=== PATIENT | female | born 1975 | race Caucasian/White ===

== ENCOUNTER 2020-10-22 13:53 | Outpatient (CLI) | payer OTHER, SELFPAY ==
--- NOTE | ~2020-10-22 | XR_ITS ---
XR hip RT min 2V, XR hip LT min 2V 10/22/2020 14:45 (accession [id number]), 10/22/2020 14:46 (accession [id number]) Indication: General hip pain. Procedure: 2 views of each hip Comparison: 07/26/2014 Findings: There has been progression of severe osteoarthritis of the hips bilaterally with complete l oss of joint space superiorly as well as remodeling of the acetabulum and subchondral sclerosis of th e femoral heads. No acute fracture is identified. No significant soft tissue abnormality. No Impression: 1: Interval progression of severe osteoarthritis of the hips. Reviewed, dictated and finalized at location A. TECHNICIAN Impression: 1: Interval progression of severe osteoarthritis of the hips. Impression: 1: Interval progression of severe osteoarthritis of the hips.
[2020-10-22 14:19] LABS: Basophils Absolute Auto 0.06 K/mm3 (0.00-0.10); Basophils Percent Auto 0.6 % (0.0-1.0); Eosinophils Percent Auto 2.9 % (1.0-6.0); Hematocrit 40.4 % (35.0-49.0); Hemoglobin 13.3 g/dL (12.0-15.0); Immature Granulocyte Absolute 0.06 K/mm3 (0.00-0.00); Immature Granulocyte Percent A 0.6 % (0.0-0.0); Lymphocytes Absolute Auto 3.48 K/mm3 (1.10-4.50); Lymphocytes Percent Auto 33.6 % (18.0-42.0); Mean Corpuscular HGB Conc 32.9 g/dL (32.0-36.0); Mean Corpuscular Hemoglobin 28.6 pg (27.0-31.0); Mean Corpuscular Volume 86.9 fL (78.0-102.0); Mean Platelet Volume 8.5 fl (9.2-11.8); Monocytes Absolute Auto 0.93 K/mm3 (0.10-0.90); Neutrophils Absolute Auto 5.5 K/mm3 (1.7-7.2); Neutrophils Percent Auto 53.3 % (50.0-70.0); Platelet Count Result 429 K/mm3 (150-420); Red Blood Count 4.65 M/mm3 (4.20-5.40); Red Cell Distribution Width 13.2 % (11.6-14.4); White Blood Count 10.4 K/mm3 (4.8-10.8)
[2020-10-22 15:33] LABS: Alanine Aminotransferase 20 U/L (14-59); Alkaline Phosphatase 69 U/L (46-116); Anion Gap 8 mmol/L (8-16); Aspartate Amino Transferase 13 U/L (15-37); Bilirubin,Total 0.3 mg/dL (0.00-1.00); Blood Urea Nitrogen 26 mg/dL (7-18); Calcium 9.5 mg/dL (8.5-10.1); Carbon Dioxide 32 mmol/L (21-32); Chloride 100 mmol/L (98-108); Cholesterol 208 mg/dL (0-200); Estimated Glomerular Filt Rate 47; Free T4 Free Thyroxine 0.95 ng/dL (0.76-1.46); Glucose 81 mg/dL (70-99); HDL Direct 42 mg/dL (40-60); LDL Cholesterol Calculated 124 mg/dL (<130); Osmolality Calculated 293 mOsm/kg (285-295); Potassium 3.6 mmol/L (3.5-5.1); Sodium 140 mmol/L (136-145); Thyroid Stimulating Hormone 3.25 uIU/mL (0.36-3.74); Total Protein 8.3 g/dL (6.4-8.2); Triglycerides 212 mg/dL (0-150)
== END 2020-10-22 13:54 | disposition home or self-care (01) ==
LOC: CHSLAB 13:56
PROVIDERS: PCP Nurse Practitioner Family; Visit Provider Nurse Practitioner Family
DX: M25.552 Pain in left hip (principal); M25.551 Pain in right hip; I10 Essential (primary) hypertension; M79.606 Pain in leg, unspecified
CPT/HCPCS: 36415; 73502; 80053; 80061; 84439; 84443; 85025

== ENCOUNTER 2022-09-10 07:59 | Outpatient (CLI) | payer OTHER, SELFPAY ==
--- NOTE | ~2022-09-10 | MM_ITS ---
EXAMINATION: MM screening miryam BI w sabiha HISTORY: Screening TECHNIQUE: Craniocaudal and mediolateral oblique 3-D tomosynthesis images were obtained and synthetic 2-D images were generated. CAD analysis was submitted and interpreted. COMPARISON: Comparison to multiple prior studies sequentially, with oldest reviewed study dated 02/15. BREAST PARENCHYMAL COMPOSITION: There are scattered areas of fibroglandular density. FINDINGS: There is no evidence of suspicious mass, calcification, or architectural distortion to sugg est malignancy in either breast. There has been no suspicious interval change. IMPRESSION: 1. No mammographic evidence of malignancy. 2. Recommend routine screening mammography in one year. BI-RADS Category 1: Negative Reviewed, dictated and finalized at location A.
[2022-09-10 08:09] LABS: Basophils Absolute Auto 0.07 K/mm3 (0.00-0.10); Basophils Percent Auto 0.7 % (0.0-1.0); Eosinophils Absolute Auto 0.32 K/mm3 (0.02-0.50); Eosinophils Percent Auto 3.2 % (1.0-6.0); Hemoglobin 12.7 g/dL (12.0-15.0); Immature Granulocyte Absolute 0.07 K/mm3 (0.00-0.00); Immature Granulocyte Percent A 0.7 % (0.0-0.0); Lymphocytes Absolute Auto 2.91 K/mm3 (1.10-4.50); Lymphocytes Percent Auto 29.4 % (18.0-42.0); Mean Corpuscular HGB Conc 34.3 g/dL (32.0-36.0); Mean Corpuscular Hemoglobin 29.3 pg (27.0-31.0); Mean Corpuscular Volume 85.3 fL (78.0-102.0); Mean Platelet Volume 8.5 fl (9.2-11.8); Monocytes Absolute Auto 0.85 K/mm3 (0.10-0.90); Monocytes Percent Auto 8.6 % (2.0-11.0); Neutrophils Absolute Auto 5.7 K/mm3 (1.7-7.2); Neutrophils Percent Auto 57.4 % (50.0-70.0); Platelet Count Result 409 K/mm3 (150-420); Red Blood Count 4.34 M/mm3 (4.20-5.40); Red Cell Distribution Width 12.9 % (11.6-14.4); White Blood Count 9.9 K/mm3 (4.8-10.8)
[2022-09-10 08:35] LABS: Alanine Aminotransferase 24 U/L (14-59); Albumin Level 3.9 g/dL (3.4-5.0); Alkaline Phosphatase 72 U/L (46-116); Anion Gap 9 mmol/L (8-16); Aspartate Amino Transferase 19 U/L (15-37); Bilirubin,Total 0.4 mg/dL (0.00-1.00); Blood Urea Nitrogen 24 mg/dL (7-18); Calcium 8.9 mg/dL (8.5-10.1); Carbon Dioxide 30 mmol/L (21-32); Chloride 100 mmol/L (98-108); Cholesterol 188 mg/dL (0-200); Estimated Glomerular Filt Rate 58; Glucose 113 mg/dL (70-99); HDL Direct 41 mg/dL (40-60); LDL Cholesterol Calculated 92 mg/dL (<130); Osmolality Calculated 293 mOsm/kg (285-295); Potassium 2.9 mmol/L (3.5-5.1); Sodium 139 mmol/L (136-145); Total Protein 8.5 g/dL (6.4-8.2); Triglycerides 273 mg/dL (0-150)
== END 2022-09-10 08:00 | disposition home or self-care (01) ==
LOC: CHSIMG 07:59
PROVIDERS: PCP Nurse Practitioner Family; Visit Provider Nurse Practitioner Family
DX: Z12.31 Encounter for screening mammogram for malignant neoplasm of breast (principal); I10 Essential (primary) hypertension; Z13.6 Encounter for screening for cardiovascular disorders; R73.09 Other abnormal glucose
CPT/HCPCS: 36415; 77063; 77067; 80053; 80061; 83036; 85025

== ENCOUNTER 2023-08-26 09:54 | Outpatient (CLI) | payer OTHER, SELFPAY ==
--- NOTE | ~2023-08-26 | XR_ITS ---
Thoracic spine: Clinical Indication: Deforming dorsopathy AP and lateral views were performed. No fracture is seen. There is normal alignment of the vertebrae. The intervertebral disc spaces appe ar normal. Paravertebral soft tissues appear normal. Impression: No significant abnormalities noted. Reviewed, dictated and finalized at [facility]. Impression: No significant abnormalities noted.
--- NOTE | ~2023-08-26 | XR_ITS ---
Lumbosacral Spine: AP and lateral views Clinical History: Pain Findings: The normal lordotic curve is maintained no fracture or subluxation. There is mild degenerat rosibel disc change at L4-L5. There is advanced facet arthropathy from L4 through S1. The sacroiliac join ts are normally outlined. Impression: Mild to moderate degenerative spondylosis at the lower lumbar spine, as detailed above. Reviewed, dictated and finalized at location M. Impression: Mild to moderate degenerative spondylosis at the lower lumbar spine, as detaile d above.
--- NOTE | ~2023-08-26 | XR_ITS ---
XR knee LT 3V DATE: 08/26/2023 11:04 INDICATION: Right knee pain TECHNIQUE: [place], AP and lateral views COMPARISON: None FINDINGS: No fracture or dislocation or joint effusion. Joint spaces are well preserved. No radiopaqu e intra-articular loose body or chondral calcinosis. IMPRESSION: Negative Reviewed, dictated and finalized at location L. IMPRESSION: Negative
--- NOTE | ~2023-08-26 | XR_ITS ---
AP and lateral views of the bilateral hips Clinical history: Pain Findings: No acute fracture or dislocation is seen. There is severe osteoporosis arthritis of the nash ateral hip joints, with joint space narrowing, remodeling of the femoral heads, reactive sclerosis, a nd osteophyte formation. There is subchondral cystic change in the left acetabulum. There is probable mild superolateral subluxation of the bilateral femoral heads/remodeling of the hip joints. Soft tis sues are unremarkable. Impression: Severe osteoarthritis of the bilateral hip joints, as detailed above, further progressed since 021. No acute fracture or dislocation. Reviewed, dictated and finalized at location M. Impression: Severe osteoarthritis of the bilateral hip joints, as detailed above, further p rogressed since 11/21/2020. No acute fracture or dislocation.
[2023-08-26 10:24] LABS: Basophils Absolute Auto 0.08 K/mm3 (0.00-0.10); Basophils Percent Auto 0.7 % (0.0-1.0); Eosinophils Absolute Auto 0.39 K/mm3 (0.02-0.50); Eosinophils Percent Auto 3.4 % (1.0-6.0); Hemoglobin 12.5 g/dL (12.0-15.0); Immature Granulocyte Absolute 0.06 K/mm3 (0.00-0.00); Immature Granulocyte Percent A 0.5 % (0.0-0.0); Lymphocytes Absolute Auto 2.86 K/mm3 (1.10-4.50); Mean Corpuscular HGB Conc 33.8 g/dL (32.0-36.0); Mean Corpuscular Hemoglobin 28.9 pg (27.0-31.0); Mean Corpuscular Volume 85.6 fL (78.0-102.0); Mean Platelet Volume 8.6 fl (9.2-11.8); Monocytes Absolute Auto 0.74 K/mm3 (0.10-0.90); Monocytes Percent Auto 6.5 % (2.0-11.0); Neutrophils Absolute Auto 7.3 K/mm3 (1.7-7.2); Neutrophils Percent Auto 63.9 % (50.0-70.0); Platelet Count Result 417 K/mm3 (150-420); Red Blood Count 4.32 M/mm3 (4.20-5.40); Red Cell Distribution Width 13.2 % (11.6-14.4); White Blood Count 11.4 K/mm3 (4.8-10.8)
[2023-08-26 11:23] LABS: Erythrocyte Sedimentation Rate 41 mm/hr (0-15)
[2023-08-26 12:17] LABS: Alanine Aminotransferase 19 U/L (14-59); Albumin Level 3.6 g/dL (3.4-5.0); Alkaline Phosphatase 80 U/L (46-116); Anion Gap 12 mmol/L (8-16); Aspartate Amino Transferase 13 U/L (15-37); Bilirubin,Total 0.4 mg/dL (0.00-1.00); Blood Urea Nitrogen 17 mg/dL (7-18); Calcium 9.4 mg/dL (8.5-10.1); Carbon Dioxide 30 mmol/L (21-32); Chloride 100 mmol/L (98-108); Cholesterol 173 mg/dL (0-200); Estimated Glomerular Filt Rate 57; Free T4 Free Thyroxine 1.08 ng/dL (0.76-1.46); Glucose 114 mg/dL (70-99); HDL Direct 38 mg/dL (40-60); LDL Cholesterol Calculated 87 mg/dL (<130); Magnesium 1.6 mg/dL (1.8-2.4); Osmolality Calculated 296 mOsm/kg (285-295); Potassium 3.1 mmol/L (3.5-5.1); Sodium 142 mmol/L (136-145); Total Protein 7.4 g/dL (6.4-8.2); Triglycerides 242 mg/dL (0-150)
[2023-08-26 13:04] LABS: Rheumatoid Factor Screen Negative (Negative)
[2023-08-26 14:29] LABS: Hemoglobin A1C 5.9 % (<5.7)
[2023-08-29 20:18] LABS: Vitamin D 25 Hydroxy 19 ng/mL (30-100)
[2023-09-01 06:04] LABS: Anti Nuclear Antibody Pattern Nuclear, Speckled
== END 2023-08-26 09:55 | disposition home or self-care (01) ==
LOC: CHSLAB 09:56
PROVIDERS: PCP Nurse Practitioner Family; Visit Provider Nurse Practitioner Family
DX: M43.06 Spondylolysis, lumbar region (principal); M16.0 Bilateral primary osteoarthritis of hip; E11.9 Type 2 diabetes mellitus without complications; R53.83 Other fatigue; I10 Essential (primary) hypertension; M25.50 Pain in unspecified joint; M54.50 Low back pain, unspecified; G89.29 Other chronic pain; M16.6 Other bilateral secondary osteoarthritis of hip; M43.9 Deforming dorsopathy, unspecified
CPT/HCPCS: 36415; 72072; 72100; 73521; 73562; 80053; 80061; 82306; 83036; 83735; 84439; 84443; 85025; 85652; 86038; 86039; 86430

== ENCOUNTER 2023-08-31 16:56 | Outpatient (RCR) | payer OTHER, SELFPAY ==
--- NOTE | 2023-08-31 17:57 | OPREHPOC ---
Outpatient Therapy Plan of Care This is a Multidisciplinary Plan of Care that may contain components documented by all disciplines (PT, OT, and ST.) PT Problem 1 PT Problem #1 Knowledge Deficit PT Goal 1 Goal 1. independent and compliant with HEP Target Visit 2 PT Problem 2 PT Problem #2 Impaired Range of Motion PT Goal 1 Goal 1. improve bilateral hip active flexion to 75 degrees 2. patient to display active hip extension bilaterall to -20 degrees from 0 Target Visit 6 PT Problem 3 PT Problem #3 Impaired Functional Mobil PT Goal 1 Goal 1. patient to ambulate with upright posture with hands on handles of walker. Target Visit 6
--- NOTE | 2023-08-31 17:57 | PTOPEVAL1 ---
Assessment and note entered by JT File, PT Evaluation Information Assessment Status Evaluation Diagnosis bilateral knee pain, hip OA Onset 08/26/23 Subjective Information patient reports she needs hip replacements in both hips. she reports she has been scared to get them done for 3 years. she reports she is a smoker and is struggling to stop smoking. she reports she has been using a walker for about a year and a half. she reports her walking has gotten progressively worse since she has had to go to the cane. she reports she has had xrays of the knees, hips, and back. she reports she has the worst pain in the hips when standing and walking. she reports she would like to walk longer distance and without assistive devices. patient reports she sleeps in a recliner. Reported Pain Level Pain Score 9,6: Self Report Assessment PT Clinical Summary mrs. jauregui is a 47 yo woman who presents to skilled PT for evaluation and treatment of bilateral hip and knee pain. she presents with signs and symptoms of severe OA of the bilateral hips. she would benefit from hip replacement of the bilateral hips, but currently is not a candidate for surgery. since surgery is not an option at this time, she would benefit from trial of PT to improve her hip strength and rom. however , care needs to be used to gently move hips due to the severe level of OA and osteoporosis in the hips. Plan of Care Interventions Gait Training,Hot Pack/Cold Pack,Neuro Re- education,Patient/Caregiver Educati,Therapeutic Activities,Therapeutic Exercise PT Services Indicated Yes Treatment Frequency and 2x weekly for 6 visits Duration These treatments will address the objective and functional deficits as defined above. The patient will be advanced safely and appropriately in order for the patient to progress towards his/her prior level of function. Additional exercises will be introduced and as well as a comprehensive home exercise program upon discharge, if needed, ?to ensure carryover of functional gains achieved in the clinic. This treatment plan has been reviewed and agreement upon by the patient.
--- NOTE | 2023-10-07 16:01 | OPREHPOC ---
Outpatient Therapy Plan of Care This is a Multidisciplinary Plan of Care that may contain components documented by all disciplines (PT, OT, and ST.) PT Problem 1 PT Problem #1 Knowledge Deficit PT Goal 1 Goal 1. independent and compliant with HEP Target Visit 2 Progress Met PT Problem 2 PT Problem #2 Impaired Range of Motion PT Goal 1 Goal 1. improve bilateral hip active flexion to 75 degrees 2. patient to display active hip extension bilaterall to -20 degrees from 0 Target Visit 6 Progress Not Met PT Problem 3 PT Problem #3 Impaired Functional Mobil PT Goal 1 Goal 1. patient to ambulate with upright posture with hands on handles of walker. Target Visit 6 Progress Not Met
--- NOTE | 2023-10-07 16:01 | PTOPDC ---
Assessment and note entered by JT File, PT Evaluation Information Assessment Status Discharge Diagnosis bilateral knee pain, hip OA Onset 08/26/23 Subjective Information patient reports she continues to have pain in the bilateral hips. she reports she is still not currently a candidate for surgery. she reports she returns to the MD in 1 month. she reports the pain is still severe at times, but she does work on her exercises when she can. Assessment PT Clinical Summary mrs. jauregui presents to skilled PT for her 6th skilled therapy visit. she continues to have high pain in the bilateral hips and knees, and is limited in active and passive hip and knee mobility. she is essentially locked in hip flexion and knee flexion. she is unable to stand upright even with UE support. she has met goal for HEP performance, but no other goals. due to lack of significant progress, and obvious needs for surgical intervention to improve her hip and knee mobility, she will DC skilled PT today and continue with HEP independent at home until follow up with MD. Plan of Care PT Services Indicated Yes
== END 2023-09-16 16:30 | disposition home or self-care (01) ==
LOC: CHSPT 16:56
PROVIDERS: PCP Nurse Practitioner Family; Visit Provider Nurse Practitioner Family
DX: M16.9 Osteoarthritis of hip, unspecified (principal); M25.561 Pain in right knee; M25.562 Pain in left knee
CPT/HCPCS: 97110; 97163

== ENCOUNTER 2024-10-22 04:33 | Emergency (ER) | payer MEDICARE, MEDICAID, SELFPAY ==
[2024-10-22 04:33] VITALS: BP 135/101; PULSE 108; RESP 18; TEMP 37; O2SAT 100
--- NOTE | 2024-10-22 04:43 | ED_ITS ---
HPI - Skin/Abscess/Foreign Bdy General Chief complaint: Extremity Problem,Nontraumatic Stated complaint: Swollen left elbow Time Seen by Provider: 10/22/24 04:43 Source: patient Mode of arrival: ambulatory Limitations: no limitations History of Present Illness HPI narrative: 48-year-old female with a history of smoking, hypertension, hyperhidrosis, GERD, chronic low back pain presents to the ED with a 1 week history of -- left elbow cellulitis. Started as a small pimple which she pinched which led to worsening left elbow cellulitis. The patient is noted to have swelling of left forearm. No fever or chills. MD complaint: other ( Left elbow erythema with swelling /tenderness) Onset (ago): week(s) ( 1 week) Tetanus up to date: no Location: L hand ( left elbow) Quality: aching Pain Consistency: constant Relieving factors: none Exacerbating factors: none Associated symptoms: denies other symptoms Treatments prior to arrival: none Related Data Home Medications ?Medication ?Instructions ?Recorded ?Confirmed ?Last Taken ?Type famotidine 20 mg tablet 20 mg PO DAILY 11/13/20 10/22/24 10/21/24 History omeprazole 20 mg capsule,delayed 20 mg PO DAILY 11/13/20 10/22/24 10/21/24 History release Allergies Allergy/AdvReac Type Severity Reaction Status Date / Time No Known Allergies Allergy Verified 10/22/24 04:51 Review of Systems 2 Review of Systems: All systems reviewed & are unremarkable except as noted in HPI and below Constitutional: Constitutional: Reports as per HPI and Reports no additional constitutional complaints Eyes: Eyes: Reports as per HPI and Reports no additional eye complaints ENT: Reports system reviewed and no additional complaints, except as documented and Reports as per HPI Cardiovascular: Cardiovascular: Reports as per HPI and Reports no additional cardiovascular complaints Respiratory: Respiratory: Reports as per HPI and Reports no additional respiratory complaints Gastrointestinal: Gastrointestinal: Reports as per HPI and Reports no additional gastrointestinal complaints Genitourinary: Genitourinary: Reports no additional female genitourinary complaints and Reports as per HPI Musculoskeletal: Musculoskeletal: Reports no additional musculoskeletal complaints and Reports as per HPI Integumentary/Breasts: Comments: left elbow swelling /redness /pain Neurologic: Reports system reviewed and no additional complaints, except as documented and Reports as per HPI Psychiatric: Psychiatric: Reports no additional psychiatric complaints and Reports as per HPI Endocrine: Endocrine: Reports no additional endocrine complaints and Reports as per HPI Hematologic/Lymphatic: Hematologic/Lymphatic: Reports no additional hematologic/lymphatic complaints and Reports as per HPI Allergic/Immunologic: Allergic/Immunologic: Reports no additional allergic/immunologic complaints and Reports as per HPI [facility] Past Medical History Medical History UTI (urinary tract infection) GERD (gastroesophageal reflux disease) Wears glasses Nicotine dependence Generalized hyperhidrosis Lower back pain Benign hypertension Surgical History Surgical History History of carpal tunnel surgery of right wrist History of hysterectomy -2014 Family History Family History Mother Hypertension Other Arthritis Social History Social History Smoking packs per day: 1 Smoking cigarettes per day: 20.0 Years smoked: 28 Smoking pack-years: 28.00 Smoking status: Current every day smoker Tobacco type: cigarettes Alcohol intake: never Substance use: never Substance use type: does not use Lack of Transportation: No Lack of Food: Never True Current Housing: I Have Housing Concerned About Future Housing: No Difficulty Paying Gas/Electric Bills: No Difficulty Paying for Meds: No Currently Unemployed: No Education: High School Diploma/GED Difficulty w/ Childcare or Family Care: No Living arrangements: alone Gender identity (if verbalized by the patient): Female Spiritual care concerns: No Exam 2 Const: General: no acute distress Nutritional Appearance: well nourished Orientation/consciousness: patient oriented x3 Limitations: no limitations HENMT: Head: normal to inspection Ears: external ears normal F luc/Nose/Sinus: Normal external nose present Face and sinus: normal facial exam Mouth: Yes Normal oral and palatal mucosa present Throat: posterior oropharynx normal Eyes: Conjunctivae: conjunctivae normal Pupils: Equal, round and reactive pupils present EOM: EOMs intact bilaterally Direct Ophthalmoscopy: no photophobia Neck: Neck: normal visual inspection, no lymphadenopathy and no meningeal signs Chest: Chest palpation & inspection: normal inspection of the chest Resp: Effort & Inspection: normal respiratory effort Auscultation: clear to auscultation bilaterally Cardio: Rate: regular rate Rhythm: regular rhythm GI: GI Palp: Yes Soft to palpation Auscultation: normal bowel sounds : General: Yes no CVA tenderness Back/Spine/Pelvis: Back: no CVA tenderness Skin: Other: left elbow swelling with erythema and tenderness which extends into left forearm. No regional lymphadenopathy. Neuro: General: patient oriented x3 Cranial nerves: Yes Nystagmus not present Speech: normal speech Gait exam (Neuro): Normal gait present Extrem: General: normal to inspection and no clubbing, cyanosis or edema Psych: Mental Status: mental status grossly normal Affect: normal affect Attitude: cooperative Course Course Emergency Course: Left elbow cellulitis- patient received a dose of Zosyn electrolyte imbalance 4.-5 g. Low magnesium and low potassium which was supplemented Vital Signs Vital signs: Vital Signs Temperature 37.0 C 10/22/24 04:33 Pulse Rate 108 H 10/22/24 04:33 Respiratory Rate 18 10/22/24 04:33 Blood Pressure 135/101 H 10/22/24 04:33 Pulse Oximetry 100 10/22/24 04:33 Oxygen Delivery Room Air 10/22/24 04:33 Temperature 37.0 C 10/22/24 04:33 Pulse Rate 108 H 10/22/24 04:33 Respiratory Rate 18 10/22/24 04:33 Blood Pressure 135/101 H 10/22/24 04:33 Pulse Oximetry 100 10/22/24 04:33 Oxygen Delivery Room Air 10/22/24 04:33 MDM - Skin/Abscess/Foreign Bdy MDM Narrative Medical decision making narrative: left elbow cellulitis electrolyte imbalance Differential Diagnosis Differential diagnosis: Likely abscess of skin or subcutaneous tissue Medical Records Attestation: I reviewed the patient's medical records. Lab Data Attestation: I reviewed the patient's lab results. 10/22/24 04:58 10/22/24 04:58 Labs: Lab Results 10/22/24 Range/Units 04:58 WBC 12.0 H (4.8-10.8) K/mm3 RBC 4.12 L (4.20-5.40) M/mm3 Hgb 11.6 L (12.0-15.0) g/dL Hct 34.7 L (35.0-49.0) % MCV 84.2 (78.0-102.0) fL MCH 28.2 (27.0-31.0) pg MCHC 33.4 (32-36) g/dL RDW 13.7 (11.6-14.4) % Plt Count 541 H (150-420) K/mm3 MPV 8.8 L (9.2-11.8) fl Immature Gran % (Auto) 0.6 H (0.0-0.0) % Neut % (Auto) 68.7 (50.0-70.0) % Lymph % (Auto) 20.6 (18.0-42.0) % Andrews % (Auto) 7.1 (2.0-11.0) % Eos % (Auto) 2.6 (1.0-6.0) % Baso % (Auto) 0.4 (0.0-1.0) % Lymph # (Auto) 2.47 (1.10-4.50) K/mm3 Andrews # (Auto) 0.85 (0.10-0.90) K/mm3 Eos # (Auto) 0.31 (0.02-0.50) K/mm3 Baso # (Auto) 0.05 (0.00-0.10) K/mm3 Abs Immat Gran (auto) 0.07 H (0.00-0.00) K/mm3 Absolute Neuts (auto) 8.22 H (1.70-7.20) K/mm3 Absolute Nucleated RBC 0.00 (0.00-0.00) K/mm3 Nucleated RBC % 0.0 (0-0.0) % % Immature Plt Fraction 1.3 (1.0-7.0) % Sodium 137 (136-145) mmol/L Potassium 2.9 L (3.5-5.1) mmol/L Chloride 98 (98-108) mmol/L Carbon Dioxide 30 (21-32) mmol/L Anion Gap 9 (4-12) mmol/L BUN 20 H (7-18) mg/dL Creatinine 0.99 (0.55-1.02) mg/dL Estim Creat Clear Calc 70 ml/min Estimated GFR 60 (59 - ) Glucose 105 H (70-99) mg/dL Calculated Osmolality 286 (285-295) mOsm/kg Lactic Acid 1.4 (0.4-2.0) mmol/L Calcium 9.2 (8.5-10.1) mg/dL Magnesium 1.4 L (1.8-2.4) mg/dL Total Bilirubin 0.4 (0.00-1.00) mg/dL AST 14 L (15-37) U/L ALT 12 L (14-59) U/L Alkaline Phosphatase 74 (46-116) U/L Total Protein 8.1 (6.4-8.2) g/dL Albumin 3.2 L (3.4-5.0) g/dL Discharge Plan Discharge Clinical Impression: Cellulitis of left elbow, Electrolyte imbalance Patient Disposition: Home, Self-Care Condition: Stable Instructions: Antibiotic Form, Cellulitis (ED), Hypokalemia (ED) Patient Language: Maori Prescriptions: New amoxicillin-pot clavulanate 875-125 mg tablet 1 tablet PO Q12H Qty: 14 0RF No Action omeprazole 20 mg capsule,delayed release(DR/EC) 20 mg PO DAILY famotidine 20 mg tablet 20 mg PO DAILY Patient Comments: per patient home medication list provided 11/12/20 metoprolol succinate 100 mg tablet extended release 24 hr See Rx Instructions .ROUTE .COMPLEX Qty: 90 0RF Dose Instruction: Take 1 tablet by mouth once daily Rx Instructions: Take 1 tablet by mouth once daily amlodipine 5 mg tablet See Rx Instructions .ROUTE .COMPLEX Qty: 90 0RF Dose Instruction: Take 1 tablet by mouth once daily Rx Instructions: Take 1 tablet by mouth once daily chlorthalidone 50 mg tablet See Rx Instructions .ROUTE .COMPLEX Qty: 90 0RF Dose Instruction: Take 1 tablet by mouth once daily Rx Instructions: Take 1 tablet by mouth once daily losartan 100 mg tablet See Rx Instructions .ROUTE .COMPLEX Qty: 90 0RF Dose Instruction: Take 1 tablet by mouth once daily Rx Instructions: Take 1 tablet by mouth once daily Follow-up/Referrals: Padmini Irene APRN [Primary Care Provider] - Time of Disposition: 06:56
--- NOTE | 2024-10-22 05:13 | PC.NURSE ---
NOTIFIED LENNY WITH LAB THAT BLOOD CULTURES NEED TO BE DRAWN
--- NOTE | 2024-10-22 05:18 | PC.NURSE ---
WAITING ON LAB TO DRAW BLOOD CULTURES BEFORE STARTING IV ANTIBIOTICS
[2024-10-22 05:29] LABS: Basophils Absolute Auto 0.05 K/mm3 (0.00-0.10); Basophils Percent Auto 0.4 % (0.0-1.0); Eosinophils Absolute Auto 0.31 K/mm3 (0.02-0.50); Eosinophils Percent Auto 2.6 % (1.0-6.0); Hematocrit 34.7 % (35.0-49.0); Hemoglobin 11.6 g/dL (12.0-15.0); Immature Granulocyte Absolute 0.07 K/mm3 (0.00-0.00); Immature Granulocyte Percent A 0.6 % (0.0-0.0); Immature Platelet Fraction Pct 1.3 % (1.0-7.0); Lymphocytes Absolute Auto 2.47 K/mm3 (1.10-4.50); Lymphocytes Percent Auto 20.6 % (18.0-42.0); Mean Corpuscular HGB Conc 33.4 g/dL (32-36); Mean Corpuscular Hemoglobin 28.2 pg (27.0-31.0); Mean Corpuscular Volume 84.2 fL (78.0-102.0); Mean Platelet Volume 8.8 fl (9.2-11.8); Monocytes Absolute Auto 0.85 K/mm3 (0.10-0.90); Monocytes Percent Auto 7.1 % (2.0-11.0); Neutrophils Absolute Auto 8.22 K/mm3 (1.70-7.20); Neutrophils Percent Auto 68.7 % (50.0-70.0); Platelet Count Result 541 K/mm3 (150-420); Red Blood Count 4.12 M/mm3 (4.20-5.40); Red Cell Distribution Width 13.7 % (11.6-14.4)
--- NOTE | 2024-10-22 05:33 | PC.NURSE ---
ASKED LENNY FROM LAB TO COME DRAW BLOOD CULTURES SO ANTIBIOTICS COULD BE STARTED
[2024-10-22 05:36] LABS: Alanine Aminotransferase 12 U/L (14-59); Albumin Level 3.2 g/dL (3.4-5.0); Alkaline Phosphatase 74 U/L (46-116); Anion Gap 9 mmol/L (4-12); Aspartate Amino Transferase 14 U/L (15-37); Bilirubin,Total 0.4 mg/dL (0.00-1.00); Blood Urea Nitrogen 20 mg/dL (7-18); Calcium 9.2 mg/dL (8.5-10.1); Carbon Dioxide 30 mmol/L (21-32); Chloride 98 mmol/L (98-108); Estimated CRCL calculation 70 ml/min; Estimated Glomerular Filt Rate 60; Glucose 105 mg/dL (70-99); Magnesium 1.4 mg/dL (1.8-2.4); Osmolality Calculated 286 mOsm/kg (285-295); Potassium 2.9 mmol/L (3.5-5.1); Sodium 137 mmol/L (136-145); Total Protein 8.1 g/dL (6.4-8.2)
[2024-10-22 05:41] LABS: Lactic Acid Reflex 1.4 mmol/L (0.4-2.0)
[2024-10-22] MEDS: PIPERACILLIN/TAZ 4.5G/NS 100ML 4.5 GM/100 ML BAG IVPB (05:46)
--- NOTE | 2024-10-22 05:55 | PC.NURSE ---
NOTIFIED DR COPELAND OF CURRENT MAGNESIUM LEVEL. VERBAL ORDER FOR MAG SULFATE 2 GM TO BE GIVEN IVPB. ORDER PLACED INTO COMPUTER
--- NOTE | 2024-10-22 06:02 | PC.NURSE ---
PATIENT RESTING QUIETLY ON STRETCHER. ANTIBIOTICS INFUSING TO RIGHT AC. SITE WITHOUT REDNESS OR IRRITATION. AT THE BEDSIDE. CALL LIGHT IN REACH
[2024-10-22] MEDS: MAGNESIUM SULF 2 GM/WATER 50ML 2 GM/50 ML BAG IVPB (06:24)
[2024-10-22] MEDS: LACTATED RINGERS 500 ML 999 ML IV CONT (06:24)
[2024-10-22 08:14] VITALS: BP 129/87; PULSE 89; RESP 18; TEMP 35.9; O2SAT 95
--- NOTE | 2024-10-23 14:15 | PC.NURSE ---
BLOOD CULTURES PRELIMINARY NO GROWTH TO DATE
--- OUTSIDE RECORDS SUMMARY | 2024-10-26 15:07 | XMS_ITS | Referral Summary ---
Author Organization [facility] Address [address] [place] [address] Care Team Providers Care Press Manager Name Role Phone Kavon Rapp MD Primary Care Provider [phone] Source Comments [facility],non-owned Affiliates and Associated Physician Practices is amultiple site organization consisting of ambulatory clinics and hospital sitesin [place], [place], [place] and [place]. This disclosure is being madepursuant to the Care Everywhere program and may not contain all information available regarding this patient. Last updated 18.[facility] Social History Tobacco Use Types Packs/Day Years Used Date Smoking Tobacco: Every Day Cigarettes 1 33.8 Started: 12/23/1990 Alcohol Use Standard Drinks/Week Comments Not Asked 0 (1 standard drink = 0.6 oz pur e alcohol) Sex and Gender Information Value Date Recorded Sex Assigned at Not on file Gender Identity Not on file Sexual Orientation Not on file Last Filed Vital Signs Vital Sign Reading Time Taken Comments Blood Pressure - - Pulse - - Temperature - - Respiratory Rate - - Oxygen Saturation - - Inhaled Oxygen Concentration - - Weight 83.9 kg (185 lb) 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
--- OUTSIDE RECORDS SUMMARY | 2024-10-26 15:07 | XMS_ITS | Clinical Summary ---
Author Organization [facility] Address [address] [place] [address] Care Team Providers Care Lining Feller Name Role Phone Kavon Rapp MD Primary Care Provider [phone] Source Comments [facility] [employer],non-owned Affiliates and Associated Physician Practices is amultiple site organization consisting of ambulatory clinics and hospital sitesin [place], [place], [place] and [place]. This disclosure is being madepursuant to the Care Everywhere program and may not contain all information available regarding this patient. 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 Plan of Treatment Health Maintenance Due Date Last Done Comments COLOGUARD (AGES 45-75) - COL ON CA SCREENING 1975 COLON MONITORING 1975 COLONOSCOPY - COLON CA SCREENING 1975 CT COLONOGRAPHY - COLON CA SCREENING 1975 Colorectal Cancer Screening 1975 FIT - COLON CA SCREENING 1975 FLEX SIG - COLON CA SCREENING 1975 LIPID TESTING 1975 MAMMOGRAM 1975 PAP SMEAR 1975 PNEUMOCOCCAL VACCINE (1 of 2 - PCV) 1981 HIV SCREENING 1990 HEPATITIS C SCREENING 12/23/1993 DTAP/TDAP/TD VACCINES (1 - Tdap) 1994 HEPATITIS B VACCINE (1 of 3 - 19+ 3-dose series) 1994 DEPRESSION SCREENING 11/08/2023 COVID-19 VACCINE (1 - 2023-2 5 season) 2024 INFLUENZA VACCINE (#1) 2024 ZOSTER VACCINE (1 of 2) 2025 HIB VACCINE Aged Out No longer eligi ble based on patient's age to complete this topic HPV VACCINE Aged Out No longer eligi ble based on patient's age to complete this topic MENINGOCOCCAL VACCINE Aged Out No walker edda eligible based on patient's age to complete this topic Care Teams Lining Feller Relationship Specialty Start Date End Date Kavon Rapp MD [address] [place] [id number] PCP - General 12/23/15
--- OUTSIDE RECORDS SUMMARY | 2024-10-26 15:07 | XMS_ITS | Patient Health Summary ---
Author Organization [facility] Address [address] [place] [address] Care Team Providers Care Bicycle Service Technician Name Role Phone Kavon Rapp MD Primary Care Provider [phone] Note from [facility],non-owned Affiliates and Associated Physician Practices is amultiple site organization consisting of ambulatory clinics and hospital sitesin [place], [place], [place] and [place]. This disclosure is being madepursuant to the Care Everywhere program and may not contain all information available regarding this patient. Last updated 18.[facility] Social History Tobacco Use Types Packs/Day Years [...] 83.9 kg (185 lb) 12/23/2015 8:23 AM TRANSPORTATION DEPARTMENT SUPERVISOR Height 157.5 cm (5' 2 ) 12/23/2015 8:23 AM TRANSPORTATION DEPARTMENT SUPERVISOR Body Mass Index 33.84 12/23/2015 8:23 AM TRANSPORTATION DEPARTMENT SUPERVISOR Procedures * XR SPINE ENTIRE 2 OR 3VW(Performed 12/23/2015) Results * XR SPINE ENTIRE 2 OR 3VW (12/23/2015 8:18 AM TRANSPORTATION DEPARTMENT SUPERVISOR) Anatomical Region Laterality Modality Other Impressions 12/23/2015 12:12 PM TRANSPORTATION DEPARTMENT SUPERVISOR Impression: No evidence of scoliosis. Mild multilevel degenerative disc and joint disease. Report dictated by Imtiaz Giles MD (rn radiology). This report was approved ??by Imtiaz Giles M.D. ?? on 12/23/2015 10:[address] LIEN Lentz M.D. have personally reviewed and interpreted this examination/study. This report was electronically signed by LIEN ASCENCIO M.D. ??on 12/23/2015 12:12 PM . Narrative 12/23/2015 12:12 PM TRANSPORTATION DEPARTMENT SUPERVISOR Exam: Total spine, 2 views standing Date: 12/23/2015 History: standing Comparison: None available Findings: 12 rib-bearing thoracic and 5 nonrib-bearing lumbar vertebral bodies are present. No vertebral body anomalies are seen. There is no evidence of scoliosis. Vertebral body heights are maintained. There is no subluxation or compression deformity. There is mild multilevel degenerative disc and joint disease osteoarthritis. No pelvic tilt is seen. There is mild negative sagittal imbalance, measuring 4.7 cm. Procedure Note Lien Ascencio MD - 02/05/2018 Exam: Total spine, 2 views standing Date: 12/23/2015 History: standing Comparison: None available Findings: 12 rib-bearing thoracic and 5 nonrib-bearing lumbar vertebral bodies arepresent. No vertebral body anomalies are seen. There is no evidence ofscoliosis. Vertebral body heights are maintained. There is no subluxationor compression deformity. There is mild multilevel degenerative disc and joint disease osteoarthritis. Nopelvic tilt is seen. There is mild negative sagittal imbalance, measuring4.7 cm. IMPRESSION Impression: No evidence of scoliosis. Mild multilevel degenerative disc and joint disease. Report dictated by Imtiaz Giles MD (rn radiology). This report was approved by Imtiaz Giles M.D. on 12/23/2015 10:[address] LIEN Lentz M.D. have personally reviewed and interpreted thisexamination/study. This report was electronically signed by LIEN ASCENCIO M.D. on 12/23/201512:12 PM . Jamie Gann MD DIAGNOSTIC IMAGING O [facility] Care Teams Bicycle Service Technician Relationship Specialty Start Date End Date Kavon Rapp MD [address] [place] [id number] PCP - General 12/23/15
--- OUTSIDE RECORDS SUMMARY | 2024-10-26 15:07 | XMS_ITS | Encounter Summary ---
Author Organization [facility] Address [address] [place] [address] Care Team Providers Care Engine Wiper Name Role Phone Kavon Rapp MD Primary Care Provider [phone] Encounter Details Date Type Department Care Team (Late st Contact Info) Description 12/23/2015 Hospital Outpatient Visit Historic [facility] - Orthopedics [address] [place] [address], [place] [address] Jamie Gann MD [address] [place] [address] [place] [address] Discharge Disposition: Home or Self Care Social History Tobacco Use Types Packs/Day Years Used Date Smoking Tobacco: Every Day Cigarettes 1 33.8 Started: 12/23/1990 Alcohol Use Standard Drinks/Week Comments Not Asked 0 (1 standard drink = 0.6 oz pur e alcohol) Sex and Gender Information Value Date Recorded Sex Assigned at Not on file Gender Identity Not on file Sexual Orientation Not on file documented as of this encounter Plan of Treatment Not on file documented as of this encounter Procedures Procedure Name Priority Date/Time Associated Diagnosis Comments XR SPINE ENTIRE 2 OR 3VW Routine 12/23/2015 8:18 AM COMMUNICATIONS OFFICER documented in this encounter Results * XR SPINE ENTIRE 2 OR 3VW (12/23/2015 8:18 AM COMMUNICATIONS OFFICER) Anatomical Region Laterality Modality Other Impressions 12/23/2015 12:12 PM COMMUNICATIONS OFFICER Impression: No evidence of scoliosis. Mild multilevel degenerative disc and joint disease. Report dictated by Imtiaz Glies MD (vice president of development). This report was approved ??by Imtiaz Giles M.D. ?? on 12/23/2015 10:38 AM . I, Dr. LIEN ASCENCIO M.D. have personally reviewed and interpreted this examination/study. This report was electronically signed by LIEN ASCENCIO M.D. ??on 12/23/2015 12:12 PM . Narrative 12/23/2015 12:12 PM COMMUNICATIONS OFFICER Exam: Total spine, 2 views standing Date: [...] disease. Report dictated by Imtiaz Giles MD (vice president of development). This report was approved by Imtiaz Giles M.D. on 12/23/2015 10:38 AM . I, Dr. LIEN ASCENCIO M.D. have personally reviewed and interpreted thisexamination/study. This report was electronically signed by LIEN ASCENCIO M.D. on 12/23/201512:12 PM . Jamie Gann MD DIAGNOSTIC IMAGING [facility] documented in this encounter Visit Diagnoses Diagnosis Other chronic pain documented in this encounter Care Teams Engine Wiper Relationship Specialty Start Date End Date Kavon Rapp MD [address] [place] [address] PCP - General 12/23/15 documented as of this encounter
--- OUTSIDE RECORDS SUMMARY | 2024-10-26 15:08 | XMS_ITS | Encounter Summary ---
Author Organization [facility] Address [address] [place] [address]. [place], [place] [id number] [place] [address] Care Team Providers Care Teletype Clerk Name Role Phone Danna Salazar MD Primary Care Provider Unavailable Danna Salazar MD Primary Care Provider Unavailable Danna Salazar MD Primary Care Provider Unavailable Danna Salazar MD Primary Care Provider Unavailable Encounter Details Date Type Department Care Team (Late st Contact Info) Description 12/21/[address] [facility] [place] [address] Danna Salazar MD Social History Tobacco Use Types Packs/Day Years Used Date Smoking Tobacco: Never Assessed Comments Unknown Sex and Gender Information Value Date Recorded Sex Assigned at Not on file Legal Sex Female 8:14 PM CDT Gender Identity Not on file Sexual Orientation Not on file documented as of this encounter Plan of Treatment Not on file documented as of this encounter Visit Diagnoses Diagnosis Osteoarthrosis, pelvic region and thigh Osteoarthrosis, unspecified whether generalized or localized, pelvic region and thigh documented in this encounter Care Teams Teletype Clerk Relationship Specialty Start Date End Date Danna Salazar MD PCP - General 07/10/15 Danna Salazar MD PCP - General 06/19/15 5 Danna Salazar MD PCP - General 05/20/15 Danna Salazar MD PCP - General 12/21/14 documented as of this encounter
--- OUTSIDE RECORDS SUMMARY | 2024-10-26 15:08 | XMS_ITS | Encounter Summary ---
Author Organization [facility] Address [address] [place] [address]. [place], [place] [id number] [place] [address] Care Team Providers Care Forest Firefighter Name Role Phone Md Generic Conversion Primary Care Provider Unavailable Md Generic Conversion Primary Care Provider Unavailable Md Generic Conversion Primary Care Provider Unavailable Md Generic Conversion Primary Care Provider Unavailable Md Generic Conversion Primary Care Provider Unavailable Encounter Details Date Type Department Care Team (Late st Contact Info) Description 10/17/2014 Abstract [facility] Medical [facility] Multispec[facility]ty [facility] - [facility] [address] [facility], [address] [place] [id number] Mason Molina MD [address] [facility] [address] [place] [address] Social History Tobacco Use Types Packs/Day Years Used Date Smoking Tobacco: Never Assessed Comments Unknown Sex and Gender Information Value Date Recorded Sex Assigned at Not on file Legal Sex Female 8:14 PM CDT Gender Identity Not on file Sexual Orientation Not on file documented as of this encounter Progress Notes * Mason Molina MD - 10/17/2014 3:40 PM CST Reason For Visit Reason For Visit: Chronic Recheck Visit History of Present Illness HPI: She was seen initially three weeks ago with a diagnosis of bilateral hip osteoarthritis, left side worse, of a mild to moderate degree. She had been on meloxicam without much improvement and wasgiven oxaprozin. She says that does not help a whole lot either. The left side might be giving her a little more pain in the right now. This is still awakening her at nighttime frequently. Pain is still around the posterior buttocks bilaterally. PHYSICAL EXAMINATION: She walks with minimal to no limp today. Internal rotation of the left hip gives her some mild pain, and she has some limited flexion on the left. Right motion is pretty good today. Straight leg raising is negative on the left side with a negative Lasegue?s test. TREATMENT: A prescription is written for Reva 5/325 mg, #30. Left hip intraarticular steroid injection under fluoroscopy was set up at [facility]. She will return in about threeweeks. Tramadol did not work well for her. TM/SMT/denice Job [id number] Active Problems Problems 1. Hip pain, unspecified laterality (719.45) (M25.559) 2. Primary osteoarthritis of both hips (715.15) (M16.0) Past Medical History Problems 1. History of depression (V11.8) (Z86.59) 2. History of hypertension (V12.59) (Z86.79) 3. History of obesity (V13.89) (Z87.898) 4. History of Snoring (786.09) (R06.83) Surgical History Problems 1. History of Neuroplasty Decompression Median Nerve At Carpal Tunnel 2. History of Tubal Ligation Family History Family History 1. Family history of diabetes mellitus (V18.0) (Z83.3) 2. Family history of glaucoma (V19.11) (Z83.511) 3. Family history of hypertension (V17.49) (Z82.49) 4. Family history of malignant neoplasm of cervix uteri (V16.49) (Z80.49) 5. Family history of obesity (V18.19) (Z83.49) Social History Problems ?? No alcohol use ?? Single ?? Smoking (305.1) (Z72.0) Current Meds 1. Lisinopril 20 MG Oral Tablet; Therapy: (Recorded:26Sep2014) to Recorded 2. Meloxicam 15 MG Oral Tablet; Therapy: (Recorded:26Sep2014) to Recorded 3. Meloxicam 15 MG Oral Tablet; Therapy: 17Aug2014 to Recorded 4. Oxaprozin 600 MG Oral Tablet; Take two tablets once daily with food; Therapy: 26Sep2014 to (Last Rx:26Sep2014) Requested for: 26Sep2014 Ordered 5. Paxil TABS; Therapy: (Recorded:26Sep2014) to Recorded 6. PriLOSEC OTC 20 MG Oral Tablet Delayed Release; Therapy: (Recorded:26Sep2014) to Recorded 7. TraMADol HCl - 50 MG Oral Tablet; TAKE 1 TO 2 TABLETS EVERY 4 TO 6 HOURS NEEDED FOR PAIN; Therapy: 26Sep2014 to (Last Rx:26Sep2014) Ordered 8. Vitamins To Go Women MISC; Therapy: (Recorded:26Sep2014) to Recorded 9. Zantac 150 MG CAPS; Therapy: (Recorded:26Sep2014) to Recorded Allergies Medication 1. No Known Drug Allergies Assessment Assessed 1. Primary osteoarthritis of both hips (715.15) (M16.0) Plan Hip pain, unspecified laterality, Primary osteoarthritis of both hips 1. Start: Hydrocodone-Acetaminophen 5-325 MG Oral Tablet; TAKE 1 TO 2 TABLETS EVERY 4 TO 6 HOURS NEEDED FOR PAIN Primary osteoarthritis of both hips 2. Follow-up visit in 3 weeks Outpatient Follow-up Status: Hold For - Scheduling Requested for: [id number] Signatures Electronically signed by : Mason Molina M.D.; Oct 17 2014 5:59PM LOCKSTITCHER (Author) Electronically signed by : Mason Molina M.D.; Oct 29 2014 3:10PM LOCKSTITCHER (Author) documented in this encounter Plan of Treatment Not on file documented as of this encounter Procedures Procedure Name Priority Date/Time Associated Diagnosis Comments XR FLUORO SI JOINT INJ Routine 10/26/2014 1:05 PM LOCKSTITCHER documented in this encounter Results * XR FLUORO SI JOINT INJ (10/26/2014 1:05 PM LOCKSTITCHER) Anatomical Region Laterality Modality NA Fluoroscopy 10/26/2014 1:05 PM LOCKSTITCHER 10/26/2014 1:05 PM LOCKSTITCHER Narrative 10/29/2014 10:10 AM LOCKSTITCHER CHARLENE BARRIENTOS ORDERING MD: MASON MOLINA MD ?? ACCT: [id number] ?? ADMIT/SERVICE DATE: 10/26/14 DISCHARGE DATE: ?? : 1975 PT TYPE: REG CLI ?? SEX: F ORD SITE: [facility] ? STUDY DATE REPORT # PROCEDURE CODE PROCEDURE ?? 10/26/14 [id number] JOINTINJCT FL JOINT INJECTION ? EXTORDERID ? [id number] ? ACCESSION NUMBER ?? [id number] ?CHART DOCUMENT ? IMPRESSION: ? SUCCESSFUL LEFT HIP JOINT INJECTION OF 80 MG OF KENALOG AND 4 ML OF ?? BUPIVACAINE. ? HISTORY: ??CHRONIC HIP PAIN ? FLUOROSCOPIC-GUIDED INTRA-ARTICULAR LEFT HIP INJECTION. ? TECHNIQUE/FINDINGS: ??AFTER EXPLAINING THE PROCEDURE TO THE PATIENT AND ?? ANSWERING ALL ?? QUESTIONS, VERBALIZATION OF UNDERSTANDING OF THE PROCEDURE WAS SOUGHT FROM ?? THE PATIENT. ??POTENTIAL ADVERSE OUTCOMES WERE RELAYED TO THE PATIENT WHICH ?? INCLUDE, BUT ARE NOT LIMITED TO, BLEEDING INFECTION, POTENTIAL FOR BODILY ?? HARM, AND THE NEED FOR SUBSEQUENT PROCEDURES. ??FOLLOWING PATIENT EDUCATION, ? WRITTEN INFORMED CONSENT WAS OBTAINED. ??THE PATIENT WAS PLACED IN THE ?? SUPINE POSITION ON A FLUOROSCOPIC TABLE, AND THE LEFT HIP WAS EVALUATED ?? WITH FLUOROSCOPY, AND A SUITABLE SKIN SITE WAS SELECTED AND MARKED. ??THE ?? PATIENT'S ANTERIOR LEFT HIP WAS THEN PREPPED AND DRAPED IN THE USUAL ?? STERILE FASHION. ??LOCAL ANESTHESIA WAS PROVIDED BY AN INJECTION OF 5 ML ?? TOTAL OF LIDOCAINE. ??FOLLOWING THIS, UNDER FLUOROSCOPIC GUIDANCE, A 3-1/2 ?? INCH 22-GAUGE SPINAL NEEDLE WAS ADVANCED INTO THE JOINT CAPSULE. ?? CONFIRMATION OF NEEDLE TIP POSITIONING WAS MADE BY HAND INJECTION OF ?? APPROXIMATELY 2 ML OF ISOVUE-300. ??FOLLOWING CONFIRMATION OF NEEDLE TIP ?? POSITION, A TOTAL OF 6 ML OF A SOLUTION CONTAINING 4 ML OF BUPIVACAINE AND ?? 2 ML OF A 40 MG/ML KENALOG SOLUTION WAS THEN INJECTED INTO THE HIP SPACE. ?? FOLLOWING INJECTION, THE NEEDLE WAS REMOVED. ??THE PATIENT TOLERATED THE ?? PROCEDURE WELL AND LEFT THE FLUOROSCOPIC DEPARTMENT FOLLOWING CONCLUSION OF ? PROCEDURE. ??A TOTAL OF 1.22 MINUTES OF FLUOROSCOPIC TIME WAS UTILIZED FOR ?? THE PROCEDURE. ? ELECTRONICALLY SIGNED BY: ?? KALA PATEL M.D. 10/29/2014 10:08 A ?? KALA PATEL M.D. ? D: ??10/26/2014 01:05 P ??#[id number] ?? T: ??10/26/2014 05:05 P/MA ? CC: ?MASON MOLINA M.D. ?PRIMARY CARE PHY UNKNOWN ? Procedure Note Danna Salazar MD - 09/01/2018 CHARLENE BARRIENTOS ORDERING MD: MASON MOLINA MD ACCT: [id number] ADMIT/SERVICE DATE: 10/26/14 DISCHARGE DATE: : 1975 PT TYPE: REG CLI SEX: F ORD SITE: [facility] STUDY DATE REPORT # PROCEDURE CODE PROCEDURE 10/26/14 [id number] JOINTINJCT FL JOINT INJECTION EXTORDERID [id number] ACCESSION NUMBER [id number] CHART DOCUMENT IMPRESSION: SUCCESSFUL LEFT HIP JOINT INJECTION OF 80 MG OF KENALOG AND 4 ML OF BUPIVACAINE. HISTORY: CHRONIC HIP PAIN FLUOROSCOPIC-GUIDED INTRA-ARTICULAR LEFT HIP INJECTION. TECHNIQUE/FINDINGS: AFTER EXPLAINING THE PROCEDURE TO THE PATIENT AND ANSWERING ALL QUESTIONS, VERBALIZATION OF UNDERSTANDING OF THE PROCEDURE WAS SOUGHTFROM THE PATIENT. POTENTIAL ADVERSE OUTCOMES WERE RELAYED TO THE PATIENTWHICH INCLUDE, BUT ARE NOT LIMITED TO, BLEEDING INFECTION, POTENTIAL FOR BODILY HARM, AND THE NEED FOR SUBSEQUENT PROCEDURES. FOLLOWING PATIENTEDUCATION, WRITTEN INFORMED CONSENT WAS OBTAINED. THE PATIENT WAS PLACED IN THE SUPINE POSITION ON A FLUOROSCOPIC TABLE, AND THE LEFT HIP WAS EVALUATED WITH FLUOROSCOPY, AND A SUITABLE SKIN SITE WAS SELECTED AND MARKED. THE PATIENT'S ANTERIOR LEFT HIP WAS THEN PREPPED AND DRAPED IN THE USUAL STERILE FASHION. LOCAL ANESTHESIA WAS PROVIDED BY AN INJECTION OF 5 ML TOTAL OF LIDOCAINE. FOLLOWING THIS, UNDER FLUOROSCOPIC GUIDANCE, A 3-1/2 INCH 22-GAUGE SPINAL NEEDLE WAS ADVANCED INTO THE JOINT CAPSULE. CONFIRMATION OF NEEDLE TIP POSITIONING WAS MADE BY HAND INJECTION OF APPROXIMATELY 2 ML OF ISOVUE-300. FOLLOWING CONFIRMATION OF NEEDLE TIP POSITION, A TOTAL OF 6 ML OF A SOLUTION CONTAINING 4 ML OF BUPIVACAINEAND 2 ML OF A 40 MG/ML KENALOG SOLUTION WAS THEN INJECTED INTO THE HIP SPACE. FOLLOWING INJECTION, THE NEEDLE WAS REMOVED. THE PATIENT TOLERATED THE PROCEDURE WELL AND LEFT THE FLUOROSCOPIC DEPARTMENT FOLLOWING CONCLUSIONOF PROCEDURE. A TOTAL OF 1.22 MINUTES OF FLUOROSCOPIC TIME WAS UTILIZED FOR THE PROCEDURE. ELECTRONICALLY SIGNED BY: KALA PATEL M.D. 10/29/2014 10:08 Lex PATEL M.D. P #[id number] YEMI CC: MASON MOLINA M.D. PRIMARY CARE PHY UNKNOWN us Mason Molina MD FLUOROSCOPY Final Resu lt documented in this encounter Visit Diagnoses Not on filedocumented in this encounter Care Teams Forest Firefighter Relationship Specialty Start Date End Date , Generic Conversion, PCP - General 07/10/15 Md Generic Conversion, PCP - General 06/19/15 5 Md Generic Conversion, PCP - General 05/20/15 Md Generic Conversion, PCP - General 12/21/14 Md Generic Conversion, MD PCP - General 10/26/14 documented as of this encounter
--- OUTSIDE RECORDS SUMMARY | 2024-10-26 15:08 | XMS_ITS | Encounter Summary ---
Author Organization [facility] Address [address] [place] [address]. [place], [place] [id number] [place] [address] Care Team Providers Care Rolloff Driver Name Role Phone Md Generic Deshawn YE Primary Care Provider Unavailable Danna Ye MD Primary Care Provider Unavailable Danna Ye MD Primary Care Provider Unavailable Danna Ye MD Primary Care Provider Unavailable Danna Ye MD Primary Care Provider Unavailable Encounter Details Date Type Department Care Team (Late st Contact Info) Description 04/12/2004 Abstract [facility] Labor & Delivery [address] [place] [address] Social History Tobacco Use Types Packs/Day Years Used Date Smoking Tobacco: Never Assessed Comments Unknown Sex and Gender Information Value Date Recorded Sex Assigned at Not on file Legal Sex Female 8:14 PM CDT Gender Identity Not on file Sexual Orientation Not on file documented as of this encounter Plan of Treatment Not on file documented as of this encounter Visit Diagnoses Not on filedocumented in this encounter Care Teams Rolloff Driver Relationship Specialty Start Date End Date Danna Ye MD PCP - General 07/10/15 Md Generic ConversionMD PCP - General 06/19/15 5 Md Generic ConversionMD PCP - General 05/20/15 Md Generic MD Deshawn PCP - General 12/21/14 Danna Ye MD PCP - General 10/26/14 documented as of this encounter
--- OUTSIDE RECORDS SUMMARY | 2024-10-26 15:08 | XMS_ITS | Encounter Summary ---
Author Organization [facility] Address [address] [place] [address]. [place] [address] Care Team Providers Care Director Presales Name Role Phone Md Generic Deshawn YE Primary Care Provider Unavailable Md Generic Deshawn YE Primary Care Provider Unavailable Danna Ye MD Primary Care Provider Unavailable Danna Ye MD Primary Care Provider Unavailable Danna Ye MD Primary Care Provider Unavailable Encounter Details Date Type Department Care Team (Latest Contact Info) Description 12/12/2014 Abstract [facility] Social History Tobacco Use Types Packs/Day Years [...] on filedocumented in this encounter Care Teams Director Presales Relationship Specialty Start Date End Date Danna Ye MD PCP - General 07/10/15 Md Generic ConversionMD PCP - General 06/19/15 5 Danna Ye MD PCP - General 05/20/15 Md Generic ConversionMD PCP - General 12/21/14 Md Generic ConversionMD PCP - General 10/26/14 documented as of this encounter
--- OUTSIDE RECORDS SUMMARY | 2024-10-26 15:08 | XMS_ITS | Encounter Summary ---
Author Organization [facility] Address [address] [place] [address]. [place] [address] Care Team Providers Care Correctional Captain Name Role Phone Unavailable Primary Care Provider Unavailabl e Encounter Details Date Type Department Care Team (Latest Contact Info) Description 09/13/2018 Abstract [facility] Medical [facility] , Danna Hess MD Social History Tobacco Use Types Packs/Day [...]
--- OUTSIDE RECORDS SUMMARY | 2024-10-26 15:08 | XMS_ITS | Encounter Summary ---
Author Organization [facility] Address [address] [place] [address]. [place], [place] [address] [place] [address] Care Team Providers Care Contact Center Professional Name Role Phone Md Generic Deshawn YE Primary Care Provider Unavailable Md Generic Deshawn YE Primary Care Provider Unavailable Md Generic Deshawn YE Primary Care Provider Unavailable Danna Ye MD Primary Care Provider Unavailable Encounter Details Date Type Department Care Team (Latest Contact Info) Description 12/21/2014 Abstract [facility] Medical Group Mason Molina MD [address] [address] Social History Tobacco Use Types Packs/Day [...] Comments XR FLUORO SI JOINT INJ Routine 12/21/2014 10:50 AM CHAPERON documented in this encounter Results * XR FLUORO SI JOINT INJ (12/21/2014 10:50 AM CHAPERON) Anatomical Region Laterality Modality NA Fluoroscopy 12/21/2014 10:5 0 AM CHAPERON 12/21/2014 10:50 AM CHAPERON Narrative 12/21/2014 11:01 AM CHAPERON CHARLENE BARRIENTOS ORDERING MD: MASON MOLINA MD ?? ACCT: [id number] ?? ADMIT/SERVICE DATE: 12/21/14 DISCHARGE DATE: ?? : 1975 PT TYPE: REG CLI ?? SEX: F ORD SITE: [facility] ? STUDY DATE REPORT # PROCEDURE CODE PROCEDURE ?? 12/21/14 JOINTINJCT FL JOINT INJECTION ? EXTORDERID ? [id number] ? IMPRESSION: ?? FLUOROSCOPIC NEEDLE LOCALIZATION INTO THE RIGHT HIP JOINT FOR THE PURPOSE OF ADMINISTRATION OF STEROID AND LOCAL ANESTHETIC FOR PAIN MANAGEMENT OF THE RIGHT HIP. ? EXAMINATION: FLUOROSCOPIC GUIDED NEEDLE PLACEMENT INTO THE RIGHT HIP FOR THE PURPOSE OF PAIN MANAGEMENT INJECTION. ? CLINICAL HISTORY: DIFFUSE RIGHT HIP PAIN. ? COMPARISON: NONE ? TECHNIQUE: THE PATIENT WAS EDUCATED TO THE RISKS OF BLEEDING AND INFECTION. PATIENT CONSENTED TO HAVE THE PROCEDURE PERFORMED. AFTER STERILE PREPARATION ANTERIORLY AND INFERIORLY TO THE RIGHT ANTERIOR INTERTROCHANTERIC REGION, A TOTAL OF 3 CC OF 1% LIDOCAINE WAS USED FOR LOCAL ANESTHESIA. A 22-GAUGE SPINAL NEEDLE WAS PLACED INTO THE RIGHT HIP JOINT. 3 CC OF SENSORCAINE AND 80 MG OF KENALOG WAS THEN INFUSED INTO THE JOINT SPACE. 2 CC OF ISOVUE WAS USED TO IDENTIFY THE JOINT SPACE PRIOR TO PAIN MANAGEMENT INJECTION. ? FINDINGS: SUCCESSFUL INJECTION OF ANESTHETIC AND STEROID INTO THE RIGHT HIP JOINT. ? THE PATIENT'S RADIATION EXPOSURE TIME WAS 0.3 MINUTES FOR THIS PROCEDURE. ? ELECTRONICALLY SIGNED BY: KALA FERREIRA12/21/2014 10:56 AM ? Procedure Note Danna Ye MD - 09/02/2018 CHARLENE BARRIENTOS MD: MASON MOLINA MD ACCT: [id number] ADMIT/SERVICE DATE: 12/21/14 DISCHARGE DATE: : 1975 PT TYPE: REG CLI SEX: F ORD SITE: [facility] STUDY DATE REPORT # PROCEDURE CODE PROCEDURE 12/21/14 JOINTINJCT FL JOINT INJECTION EXTORDERID [id number] IMPRESSION: FLUOROSCOPIC NEEDLE LOCALIZATION INTO THE RIGHT HIP JOINT FOR THE PURPOSEOF ADMINISTRATION OF STEROID AND LOCAL ANESTHETIC FOR PAIN MANAGEMENT OF THE RIGHT HIP. EXAMINATION: FLUOROSCOPIC GUIDED NEEDLE PLACEMENT INTO THE RIGHT HIP FORTHE PURPOSE OF PAIN MANAGEMENT INJECTION. CLINICAL HISTORY: DIFFUSE RIGHT HIP PAIN. COMPARISON: NONE TECHNIQUE: THE PATIENT WAS EDUCATED TO THE RISKS OF BLEEDING ANDINFECTION. PATIENT CONSENTED TO HAVE THE PROCEDURE PERFORMED. AFTER STERILE PREPARATION ANTERIORLY ANDINFERIORLY TO THE RIGHT ANTERIOR INTERTROCHANTERIC REGION, A TOTAL OF 3 CC OF 1% LIDOCAINE WASUSED FOR LOCAL ANESTHESIA. A 22-GAUGE SPINAL NEEDLE WAS PLACED INTO THE RIGHT HIP JOINT. 3 CC OFSENSORCAINE AND 80 MG OF KENALOG WAS THEN INFUSED INTO THE JOINT SPACE. 2 CC OF ISOVUE WAS USED TOIDENTIFY THE JOINT SPACE PRIOR TO PAIN MANAGEMENT INJECTION. FINDINGS: SUCCESSFUL INJECTION OF ANESTHETIC AND STEROID INTO THE RIGHTHIP JOINT. THE PATIENT'S RADIATION EXPOSURE TIME WAS 0.3 MINUTES FOR THIS PROCEDURE. ELECTRONICALLY SIGNED BY: KALA FERREIRA12/21/2014 10:56 AM us Masno Molina MD FLUOROSCOPY Final Resu lt documented in this encounter Visit Diagnoses Not on filedocumented in this encounter Care Teams Contact Center Professional Relationship Specialty Start Date End Date Danna Ye ConversionMD PCP - General 07/10/15 Md Generic Conversion, PCP - General 06/19/15 5 Danna Ye ConversionMD PCP - General 05/20/15 Md Generic Conversion, PCP - General 12/21/14 documented as of this encounter
--- OUTSIDE RECORDS SUMMARY | 2024-10-26 15:08 | XMS_ITS | Encounter Summary ---
Author Organization [facility] Address [address] [place] [address]. [place], [place] [address] [place] [address] Care Team Providers Care Machine Cementer Name Role Phone Danna Salazar MD Primary Care Provider Unavailable Danna Salazar MD Primary Care Provider Unavailable Danna Salazar MD Primary Care Provider Unavailable Encounter Details Date Type Department Care Team (Late st Contact Info) Description 05/20/2015 Abstract [facility] [place] [address] [id number] Radha Rm MD Three [facility] [address] [place], [place] [id number] Social History Tobacco Use Types Packs/Day Years Used Date Smoking Tobacco: Never Assessed Comments Unknown Sex and Gender Information Value Date Recorded Sex Assigned at Not on file Legal Sex Female 8:14 PM CDT Gender Identity Not on file Sexual Orientation Not on file documented as of this encounter Plan of Treatment Not on file documented as of this encounter Visit Diagnoses Diagnosis Thoracic or lumbosacral neuritis or radiculitis Thoracic or lumbosacral neuritis or radiculitis, unspecified documented in this encounter Care Teams Machine Cementer Relationship Specialty Start Date End Date Danna Salazar MD PCP - General 07/10/15 Danna Salazar MD PCP - General 06/19/15 5 Danna Salazar MD PCP - General 05/20/15 documented as of this encounter
--- OUTSIDE RECORDS SUMMARY | 2024-10-26 15:08 | XMS_ITS | Encounter Summary ---
Author Organization [facility] Address [address] [place] [address]. [place], [place] [address] [place] [address] Care Team Providers Care Press Operator Printing Name Role Phone Md Generic Conversion Primary Care Provider Unavailable Md Generic Conversion Primary Care Provider Unavailable Md Generic Conversion Primary Care Provider Unavailable Md Generic Conversion Primary Care Provider Unavailable Md Generic Conversion Primary Care Provider Unavailable Encounter Details Date Type Department Care Team (Late st Contact Info) Description 11/26/2014 Abstract [facility] Medical [facility] Multispecialty Care - [facility] [address] [facility], [address] [place] [id number] Mason Molina MD [address] [facility] [address] [place] [address] Social History Tobacco Use Types Packs/Day Years Used Date Smoking Tobacco: Never Assessed Comments Unknown Sex and Gender Information Value Date Recorded Sex Assigned at Not on file Legal Sex Female 8:14 PM CDT Gender Identity Not on file Sexual Orientation Not on file documented as of this encounter Last Filed Vital Signs Vital Sign Reading Time Taken Comments Blood Pressure - - Pulse - - Temperature - - Respiratory Rate - - Oxygen Saturation - - Inhaled Oxygen Concentration - - Weight 75.8 kg (167 lb) 11/26/2014 4:38 PM RN PLACEMENT Height 157.5 cm (5' 2 ) 11/26/2014 4:38 PM RN PLACEMENT Body Mass Index 30.54 11/26/2014 4:38 PM RN PLACEMENT documented in this encounter Progress Notes * Mason Molina MD - 11/26/2014 3:30 PM CST Reason For Visit Reason For Visit: Chronic Recheck Visit History of Present Illness HPI: She has been seen for bilateral hip osteoarthritis, left side worse. This is mild to moderate degree. She had steroid injection in that left hip done at [facility] on October 26, 2014. This has helped out a lot. This is still holding pretty well for her. She is getting more symptomatic on the right side. She is awakening most of the night than she was prior to these injections. She is using some Tylenol and [id number]-[id number] ibuprofen at this time. She walks without any noticeable limp today. External rotation on the right side is about 45 degrees and the left side is about 40. Internal rotation can be done to about 10 on the left side now without pain. TREATMENT: She was given a prescription for [place] 5/325 mg #40. A steroid injection was set up to do intra-articularly in the right hip under fluoroscopy at the hospital. She will return here in fiveto six weeks. JEFFERSON/AMERICO/jonathan Job [id number] Active Problems Problems 1. Primary osteoarthritis of both hips (715.15) [...] ?? Smoking (305.1) (Z72.0) Current Meds 1. Hydrocodone-Acetaminophen 5-325 MG Oral Tablet; TAKE 1 TO 2 TABLETS EVERY 4 TO 6 HOURS NEEDED FOR PAIN; Therapy: [id number] to (Evaluate:[id number]); Last Rx:[id number] Ordered 2. Lisinopril 20 MG Oral Tablet; Therapy: (Recorded:26Sep2014) to Recorded 3. Meloxicam 15 MG Oral Tablet; Therapy: (Recorded:26Sep2014) to Recorded 4. Meloxicam 15 MG Oral Tablet; Therapy: 17Aug2014 to Recorded 5. Oxaprozin 600 MG Oral Tablet; Take two tablets once daily with food; Therapy: 26Sep2014 to (Last Rx:26Sep2014) Requested for: 26Sep2014 Ordered 6. Paxil TABS; Therapy: (Recorded:26Sep2014) to Recorded 7. PriLOSEC OTC 20 MG Oral Tablet Delayed Release; Therapy: (Recorded:26Sep2014) to Recorded 8. TraMADol HCl - 50 MG Oral Tablet; TAKE 1 TO 2 TABLETS EVERY 4 TO 6 HOURS NEEDED FOR PAIN; Therapy: 26Sep2014 to (Last Rx:26Sep2014) Ordered 9. Vitamins To Go Women MISC; Therapy: (Recorded:26Sep2014) to Recorded 10. Zantac 150 MG CAPS; Therapy: (Recorded:26Sep2014) to Recorded Allergies Medication 1. No Known Drug Allergies Vitals Vital Signs [Data Includes: Current Encounter] Recorded by : Ke Brewer at 26Nov2014 04:38PM Height 5 ft 2 in Weight 167 lb BMI Calculated 30.54 BSA Calculated 1.77 Assessment Assessed 1. Primary osteoarthritis of both hips (715.15) (M16.0) Plan Primary osteoarthritis of both hips, 1. Renew: Hydrocodone-Acetaminophen 5-325 MG Oral Tablet; TAKE 1 TO 2 TABLETS EVERY 4 TO 6 HOURS NEEDED FOR PAIN Unlinked 2. Follow-up visit in 6 weeks Outpatient Follow-up Status: Hold For - Scheduling Requested for: 26Nov2014 Signatures Electronically signed by : Mason Molina M.D.; Nov 26 2014 9:43PM RN PLACEMENT (Author) Electronically signed by : Mason Molina M.D.; Nov 29 2014 12:03PM RN PLACEMENT (Author) documented in this encounter Plan of Treatment Not on file documented as of this encounter Visit Diagnoses Not on filedocumented in this encounter Care Teams Press Operator Printing Relationship Specialty Start Date End Date Md Generic Conversion, PCP - General 07/10/15 Md Generic Conversion, PCP - General 06/19/15 5 Md Generic Conversion, PCP - General 05/20/15 Md Generic Conversion, PCP - General 12/21/14 Md Generic Conversion, PCP - General 10/26/14 documented as of this encounter
--- OUTSIDE RECORDS SUMMARY | 2024-10-26 15:08 | XMS_ITS | Encounter Summary ---
Author Organization [facility] Address [address] [place] [address]. [place], [place] [address] [place] [address] Care Team Providers Care Therapeutic Recreation Specialist Name Role Phone Md Generic Conversion Primary Care Provider Unavailable Md Generic Conversion Primary Care Provider Unavailable Md Generic Conversion Primary Care Provider Unavailable Md Generic Conversion Primary Care Provider Unavailable Md Generic Conversion Primary Care Provider Unavailable Encounter Details Date Type Department Care Team (Late st Contact Info) Description 09/26/2014 Abstract [facility] Medical [facility] Multispecialty Care - [facility] [address] [facility], [address] [place] [phone] Mason Molina MD [address] [facility] [address] [place] [address] Social History Tobacco Use Types Packs/Day Years Used Date Smoking Tobacco: Never Assessed Comments Unknown Sex and Gender Information Value Date Recorded Sex Assigned at Not on file Legal Sex Female 8:14 PM CDT Gender Identity Not on file Sexual Orientation Not on file documented as of this encounter Progress Notes * Mason Molina MD - 09/26/2014 3:00 PM CST Reason For Visit New Patient Visit History of Present Illness This 38-year-old lady is sent by nurse practitioner, Cyril, about bilateral hip pain. She points to the area of the buttock and right and left lower back and a little bit laterally. There is no realpain anteriorly or down the thighs. This seemed to start up around 2011 without any specific history of injury or unusual activity. She has been tried with some meloxicam without much improvement. She had no physical therapy or injection. When she gets up after sitting for a while to stand, that gives her the most trouble and, with standing for prolonged periods of time, it is a lot worse. This will occasionally awaken her at nighttime. She has had some chiropractic treatment for her low back and, if she is on her feet most of the day at work, it increases pain. PHYSICAL EXAMINATION: When she walks, she has a little internal rotation of both legs and it makes her walk with almost a little bit of a stiff-legged gait. There is no actual limp developed. On forward flexion, she lacks only 6 of bring her fingertips to her toes. Extension and sidebending of thelumbar spine are unremarkable. On the left side, she has some mildly positive straight leg raising on the left side. Hip flexion is to about 110 degrees bilaterally, abduction/adduction is good with only mild pain. External rotation is about 70 on both hips, internal rotation 10 with some mild pain. She can straight leg raise against resistance but with some pain. IMAGING: X-ray films of the pelvis from [facility], done on July 26, 2014, show mild osteoarthritis of the hips bilaterally. The femoral heads almost have a more oval shape than sphericaland there is some joint space narrowing. 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 Films of the lumbar spine from the same date and location show some mild facet arthropathy in the lower lumbar spine but otherwise negative. DIAGNOSIS: Bilateral hip osteoarthritis, left side worse, of a mild to moderate degree. She will be tried on a different anti-inflammatory than her meloxicam. She is given oxaprozin 600 mg #40 two daily and a prescription for tramadol 50 mg #30 was called in. She will return in two to three weeks for a followup visit. JEFFERSON/AMERICO/jonathan Job [id number] Review of Systems Constitutional: negative. Head and Face: negative. Eyes: negative. ENT: negative. Cardiovascular: negative. Respiratory: negative. Gastrointestinal: negative. Genitourinary: negative. Musculoskeletal: joint swelling and joint stiffness. Integumentary negative. Breasts Negative. Neurological Negative and As Noted in HPI. Psychiatric: depression. Endocrine Negative. Hematologic and Lymphatic: negative. Active Problems 1. Hip pain, unspecified laterality (719.45) (M25.559) Past Medical History 1. History of depression (V11.8) (Z86.59) 2. History of hypertension (V12.59) (Z86.79) 3. History of obesity (V13.89) (Z87.898) 4. History of Snoring (786.09) (R06.83) Surgical History 1. History of Neuroplasty Decompression Median Nerve At Carpal Tunnel 2. History of Tubal Ligation Family History Family History 1. Family history of diabetes mellitus (V18.0) (Z83.3) 2. Family history of glaucoma (V19.11) (Z83.511) 3. Family history of hypertension (V17.49) (Z82.49) 4. Family history of malignant neoplasm of cervix uteri (V16.49) (Z80.49) 5. Family history of obesity (V18.19) (Z83.49) Social History ?? No alcohol use ?? Single ?? Smoking (305.1) (Z72.0) Current Meds 1. Lisinopril 20 MG Oral Tablet; Therapy: (Recorded:26Sep2014) to Recorded 2. Meloxicam 15 MG Oral Tablet; Therapy: (Recorded:26Sep2014) to Recorded 3. Meloxicam 15 MG Oral Tablet; Therapy: 17Aug2014 to Recorded 4. Paxil TABS; Therapy: (Recorded:26Sep2014) to Recorded 5. PriLOSEC OTC 20 MG Oral Tablet Delayed Release; Therapy: (Recorded:26Sep2014) to Recorded 6. Vitamins To Go Women MISC; Therapy: (Recorded:26Sep2014) to Recorded 7. Zantac 150 MG CAPS; Therapy: (Recorded:26Sep2014) to Recorded Allergies 1. No Known Drug Allergies Assessment 1. Primary osteoarthritis of both hips (715.15) (M16.0) Plan 1. Start: Oxaprozin 600 MG Oral Tablet; Take two tablets once daily with food 2. Start: TraMADol HCl - 50 MG Oral Tablet; TAKE 1 TO 2 TABLETS EVERY 4 TO 6 HOURS NEEDED FOR PAIN 3. Follow-up visit in 2 weeks Outpatient Follow-up Status: Hold For - Scheduling Requested for: 27Sep2014 Signatures Electronically signed by : Mason Molina M.D.; Sep 27 2014 9:42PM MACHINE FELLER (Author) Electronically signed by : Mason Molina M.D.; Oct 02 2014 12:53PM MACHINE FELLER (Author) INE FELLER documented in this encounter Plan of Treatment Not on file documented as of this encounter Visit Diagnoses Not on filedocumented in this encounter Care Teams Therapeutic Recreation Specialist Relationship Specialty Start Date End Date Md Generic Conversion, PCP - General 07/10/15 Md Generic Conversion, PCP - General 06/19/15 5 Md Generic Conversion, PCP - General 05/20/15 Md Generic Conversion, PCP - General 12/21/14 Md Generic Conversion, PCP - General 10/26/14 documented as of this encounter
--- OUTSIDE RECORDS SUMMARY | 2024-10-26 15:08 | XMS_ITS | Encounter Summary ---
Author Organization [facility] Address [address] [place] [address]. [place], [place] [address] [place] [address] Care Team Providers Care Charge Hand Name Role Phone Danna Salazar MD Primary Care Provider Unavailable Danna Salazar MD Primary Care Provider Unavailable Danna Salazar MD Primary Care Provider Unavailable Danna Salazar MD Primary Care Provider Unavailable Danna Salazar MD Primary Care Provider Unavailable Encounter Details Date Type Department Care Team (Late st Contact Info) Description 10/26/2014 Abstract [facility] [place] [address] Danna Salazar MD Social History Tobacco Use [...] as of this encounter Visit Diagnoses Diagnosis Primary localized osteoarthrosis, pelvic region and thigh documented in this encounter Care Teams Charge Hand Relationship Specialty Start Date End Date Danna Salazar MD PCP - General 07/10/15 Danna Salazar MD PCP - General 06/19/15 5 Danna Salazar MD PCP - General 05/20/15 Danna Salazar MD PCP - General 12/21/14 Danna Salazar MD PCP - General 10/26/14 documented as of this encounter
--- OUTSIDE RECORDS SUMMARY | 2024-10-26 15:08 | XMS_ITS | Clinical Summary ---
Author Organization [facility] Address [address] [place] [address]. [place] [address] Care Team Providers Care Pens And Pencils Repairer Name Role Phone Unavailable Primary Care Provider Unavailabl e Social History Tobacco Use Types Packs/Day Years [...] 75.8 kg (167 lb) 11/26/2014 4:38 PM DEBRANDER Height 157.5 cm (5' 2 ) 11/26/2014 4:38 PM DEBRANDER Body Mass Index 30.54 11/26/2014 4:38 PM DEBRANDER Plan of Treatment Health Maintenance Due Date Last Done Comments Cervical Cancer Screening Pa p Smear (Age 30 to 64) Every 3 Years 1975 Colorectal Cancer Screening Colonoscopy (10 Years) 1975 Annual Physical 1978 Hepatitis C 1993 DTaP, Tdap and Td Vaccines ( 1 - Tdap) 1994 Hepatitis B Vaccines (1 of 3 - 19+ 3-dose series) 1994 Cervical Cancer Screening Pa p with HPV Testing (Age 30 to 64) Every 5 Years 2005 Cervical Cancer Screening with HPV 2005 Mammogram Screening 2015 COVID-19 Vaccine ( - 2023-2 5 season) 2024 Influenza Adult (#1) 2024 Meningococcal Vaccine Aged Out No walker edda eligible based on patient's age to complete this topic Pneumococcal Vaccine: Pediat rics (0 to 5 Years) and At-Risk Patients (6 to 64 Years) Aged Out No longer eligible b ased on patient's age to complete this topic RSV Immunizations Under 20 Months Aged Out No longer eligible based on patient's age to complete this topic
--- OUTSIDE RECORDS SUMMARY | 2024-10-26 15:08 | XMS_ITS | Encounter Summary ---
Author Organization [facility] Address [address] [place] [address]. [place] [address] [place] [address] Care Team Providers Care Motor Assembly Supervisor Name Role Phone Danna Salazar MD Primary Care Provider Unavailable Danna Salazar MD Primary Care Provider Unavailable Encounter Details Date Type Department Care Team (Late st Contact Info) Description 06/19/2015 Abstract [facility] [place] [address] [phone] Radha Rm MD Three [facility] [address] [place] [address] Social History Tobacco Use Types Packs/Day Years [...] unspecified documented in this encounter Care Teams Motor Assembly Supervisor Relationship Specialty Start Date End Date Danna Salazar MD PCP - General 07/10/15 Danna Salazar MD PCP - General 06/19/15 5 documented as of this encounter
--- OUTSIDE RECORDS SUMMARY | 2024-10-26 15:08 | XMS_ITS | Encounter Summary ---
Author Organization [facility] Address [address] [place] [address]. [place] [address] Care Team Providers Care Processing Inspector Name Role Phone Danna Salazar MD Primary Care Provider Unavailable Danna Salazar MD Primary Care Provider Unavailable Danna Salazar MD Primary Care Provider Unavailable Danna Salazar MD Primary Care Provider Unavailable Encounter Details Date Type Department Care Team (Latest Contact Info) Description 01/29/2015 Abstract [facility] Medical Group Social History Tobacco Use [...] on filedocumented in this encounter Care Teams Processing Inspector Relationship Specialty Start Date End Date Danna Salazar MD PCP - General 07/10/15 Danna Salazar MD PCP - General 06/19/15 5 Danna Salazar MD PCP - General 05/20/15 Danna Salazar MD PCP - General 12/21/14 documented as of this encounter
--- OUTSIDE RECORDS SUMMARY | 2024-10-26 15:08 | XMS_ITS | Encounter Summary ---
Author Organization [facility] Address [address] [place] [address]. [place] [address] [place] [address] Care Team Providers Care Semiconductor Testing Group Leader Name Role Phone Danna Salazar MD Primary Care Provider Unavailable Encounter Details Date Type Department Care Team (Late st Contact Info) Description 07/10/2015 Abstract [facility] Inter[facility] Management Center [place], [place] [id number] Radha Rm MD Three [facility] [address] [place], [place] [phone] Social History Tobacco Use Types Packs/Day Years [...] unspecified documented in this encounter Care Teams Semiconductor Testing Group Leader Relationship Specialty Start Date End Date Danna Salazar MD PCP - General 07/10/15 documented as of this encounter
--- OUTSIDE RECORDS SUMMARY | 2024-10-26 15:08 | XMS_ITS | Encounter Summary ---
Author Organization [facility] Address [address] [place] [address]. [place] [address] [place] [address] Care Team Providers Care Performance Specialist Name Role Phone Md Generic Conversion Primary Care Provider Unavailable Md Generic Conversion Primary Care Provider Unavailable Md Generic Conversion Primary Care Provider Unavailable Md Generic Conversion Primary Care Provider Unavailable Encounter Details Date Type Department Care Team (Late st Contact Info) Description 12/31/2014 Abstract [facility] Medical [facility]ty [facility] - [address], [address] [place] [id number] Mason Molina MD [address] [facility] [address] [place] [address] Social History Tobacco Use Types Packs/Day Years Used Date Smoking Tobacco: Never Assessed Comments Unknown Sex and Gender Information Value Date Recorded Sex Assigned at Not on file Legal Sex Female 8:14 PM CDT Gender Identity Not on file Sexual Orientation Not on file documented as of this encounter Progress Notes * Msaon Molina MD - 12/31/2014 4:30 PM CST Reason For Visit Reason For Visit: Chronic Recheck Visit History of Present Illness HPI: She has been seen for bilateral hip arthritis, left side worse. She had an intra-articular steroid injection under fluoroscopy in the left hip on October 26, 2014. This is still holding up pretty well. She did have injection of the right hip done intraarticularly under fluoroscopic control about two weeks ago and this is starting to work pretty well now too. She has ran out of hydrocodone but was using it most days, somewhat even after the injections. In her work, she needs to go up and down a ladder for supplies frequently. There is good flexion and extension of both hips in abduction and adduction. She walks without any noticeable limp. External rotation of the right and left hips is pretty equal to about 65 to 70 degrees now. TREATMENT: A new prescription was written for [place] 5/325 mg #40. We will just observe how she doeswith the effects of the steroid injections. Return on an as- needed basis. TM/AMERICO/mp Job [id number] Active Problems Problems 1. Primary osteoarthritis of [...] ?? Smoking (305.1) (Z72.0) Current Meds 1. Amitriptyline HCl - 25 MG Oral Tablet; Therapy: [id number] to Recorded 2. BuPROPion HCl ER (SR) 200 MG Oral Tablet Extended Release 12 Hour; Therapy: [id number] to Recorded 3. BusPIRone HCl - 10 MG Oral Tablet; Therapy: [id number] to Recorded 4. Gabapentin 300 MG Oral Capsule; Therapy: [id number] to Recorded 5. Hydrocodone-Acetaminophen 5-325 MG Oral Tablet; TAKE 1 TO 2 TABLETS EVERY 4 TO 6 HOURS NEEDED FOR PAIN; Therapy: [id number] to (Evaluate:30Nov2014); Last Rx:26Nov2014 Ordered 6. Lisinopril 20 MG Oral Tablet; Therapy: (Recorded:26Sep2014) to Recorded 7. Lisinopril-Hydrochlorothiazide 20-12.5 MG Oral Tablet; Therapy: 13Feb2014 to Recorded 8. Meloxicam 15 MG Oral Tablet; Therapy: (Recorded:26Sep2014) to Recorded 9. Meloxicam 15 MG Oral Tablet; Therapy: 17Aug2014 to Recorded 10. Omeprazole 20 MG Oral Capsule Delayed Release; Therapy: 13Feb2014 to Recorded 11. Oxaprozin 600 MG Oral Tablet; Take two tablets once daily with food; Therapy: 26Sep2014 to (Last Rx:26Sep2014) Requested for: 26Sep2014 Ordered 12. PARoxetine HCl - 30 MG Oral Tablet; Therapy: 28Mar2014 to Recorded 13. Paxil TABS; Therapy: (Recorded:26Sep2014) to Recorded 14. PriLOSEC OTC 20 MG Oral Tablet Delayed Release; Therapy: (Recorded:26Sep2014) to Recorded 15. Ranitidine HCl - 150 MG Oral Tablet; Therapy: 13Feb2014 to Recorded 16. TraMADol HCl - 50 MG Oral Tablet; TAKE 1 TO 2 TABLETS EVERY 4 TO 6 HOURS NEEDED FOR PAIN; Therapy: 26Sep2014 to (Last Rx:26Sep2014) Ordered 17. Vitamin D (Ergocalciferol) 79295 UNIT Oral Capsule; Therapy: 28Mar2014 to Recorded 18. Vitamins To Go Women [facility]; Therapy: (Recorded:26Sep2014) to Recorded 19. Zantac 150 MG CAPS; Therapy: (Recorded:26Sep2014) to Recorded Allergies Medication 1. No Known Drug Allergies Assessment Assessed 1. Primary osteoarthritis of both hips (715.15) (M16.0) Plan Primary osteoarthritis of both hips 1. Follow-up PRN Outpatient Follow-up Status: Complete Done: [id number] Primary osteoarthritis of both hips, 2. Hydrocodone-Acetaminophen 5-325 MG Oral Tablet; TAKE 1 TO 2 TABLETS EVERY 4 TO 6 HOURS NEEDED FOR PAIN Signatures Electronically signed by : Mason Molina M.D.; Dec 31 2014 10:08PM COMPUTER ASSISTANT (Author) Electronically signed by : Mason Molina M.D.; Jan 15 2015 11:32AM COMPUTER ASSISTANT (Author) documented in this encounter Plan of Treatment Not on file documented as of this encounter Visit Diagnoses Not on filedocumented in this encounter Care Teams Performance Specialist Relationship Specialty Start Date End Date Md Generic Conversion, PCP - General 07/10/15 Md Generic Conversion, PCP - General 06/19/15 5 Md Generic Conversion, PCP - General 05/20/15 Md Generic Conversion, PCP - General 12/21/14 documented as of this encounter
--- OUTSIDE RECORDS SUMMARY | 2024-10-26 15:08 | XMS_ITS | Encounter Summary ---
Author Organization [facility] Address [address] [place] [address]. [place] [address] Care Team Providers Care Unmanned Equipment Operator Name Role Phone Md Generic Deshawn YE Primary Care Provider Unavailable Md Generic Deshawn YE Primary Care Provider Unavailable Danna Ye MD Primary Care Provider Unavailable Danna Ye MD Primary Care Provider Unavailable Danna Ye MD Primary Care Provider Unavailable Encounter Details Date Type Department Care Team (Latest Contact Info) Description 10/22/2014 Abstract [facility] Group Social History Tobacco Use Types [...] on filedocumented in this encounter Care Teams Unmanned Equipment Operator Relationship Specialty Start Date End Date Danna Ye MD PCP - General 07/10/15 Md Generic ConversionMD PCP - General 06/19/15 5 Danna Ye MD PCP - General 05/20/15 Md Generic ConversionMD PCP - General 12/21/14 Md Generic ConversionMD PCP - General 10/26/14 documented as of this encounter
--- OUTSIDE RECORDS SUMMARY | 2024-10-26 15:08 | XMS_ITS | Encounter Summary ---
Author Organization [facility] Address [address] [place] [address]. [place] [address] [place] [address] Care Team Providers Care Property Assistant Name Role Phone Md Generic Deshawn YE Primary Care Provider Unavailable Danna Ye MD Primary Care Provider Unavailable Danna Ye MD Primary Care Provider Unavailable Danna Ye MD Primary Care Provider Unavailable Danna Ye MD Primary Care Provider Unavailable Encounter Details Date Type Department Care Team (Late st Contact Info) Description 10/31/1977 Abstract [facility] [address] [place] [address] Danna Ye MD Social History Tobacco Use Types Packs/Day [...] on filedocumented in this encounter Care Teams Property Assistant Relationship Specialty Start Date End Date Danna Ye MD PCP - General 07/10/15 Danna Ye MD PCP - General 06/19/15 5 Danna Ye MD PCP - General 05/20/15 Danna Ye MD PCP - General 12/21/14 Danna Ye MD PCP - General 10/26/14 documented as of this encounter
--- NOTE | 2024-10-28 13:01 | PC.NURSE ---
FINAL BLOOD CULTURE REPORT; NO GROWTH AFTER 5 DAYS, NO FURTHER ACTION OR TREATMENT NEEDED.
== END 2024-10-22 08:15 | disposition home or self-care (01) ==
PROVIDERS: Emergency Provider Internal Medicine Critical Care Medicine; PCP Nurse Practitioner Family
DX: L03.114 Cellulitis of left upper limb (principal); E87.8 Other disorders of electrolyte and fluid balance, not elsewhere classified; I10 Essential (primary) hypertension; F17.210 Nicotine dependence, cigarettes, uncomplicated; Z79.899 Other long term (current) drug therapy
CPT/HCPCS: 36415; 80053; 83605; 83735; 85025; 85055; 87040; 96365; 96367; 99284; J2543; J3475; J7120

== ENCOUNTER 2024-10-24 16:40 | Outpatient (NON) | payer MEDICARE, SELFPAY | END 2024-10-24 16:41 | disposition home or self-care (01) | LOC: CHSLAB 16:41 | PROVIDERS: Visit Provider Nurse Practitioner Family | DX: L03.90 Cellulitis, unspecified (principal) | CPT/HCPCS: 87070; 87075; 87205 ==

== ENCOUNTER 2025-10-24 16:09 | Outpatient (CLI) | payer MEDICARE, SELFPAY ==
[2025-10-24 16:34] LABS: Hematocrit 36.4 % (35.0-49.0); Hemoglobin 11.7 g/dL (12.0-15.0); Immature Granulocyte Percent A 0.6 % (0.0-0.0); Immature Platelet Fraction Pct 1.1 % (1.0-7.0); Lymphocytes Absolute Auto 2.33 K/mm3 (1.10-4.50); Mean Corpuscular HGB Conc 32.1 g/dL (32-36); Mean Corpuscular Hemoglobin 27.2 pg (27.0-31.0); Mean Corpuscular Volume 84.7 fL (78.0-102.0); Nucleated Red Blood Cells Absolute Auto 0.00 K/mm3 (0.00-0.00); Nucleated Red Blood Cells Perc 0.0 % (0-0.0); Platelet Count Result 525 K/mm3 (150-420); Red Blood Count 4.30 M/mm3 (4.20-5.40); White Blood Count 10.8 K/mm3 (4.8-10.8)
[2025-10-24 16:41] LABS: Alanine Aminotransferase 17 U/L (6-35); Albumin Level 4.3 g/dL (3.5-5.1); Alkaline Phosphatase 100 U/L (38-126); Anion Gap 13 mmol/L (4-12); Aspartate Amino Transferase 26 U/L (14-36); Bilirubin,Total 0.2 mg/dL (0.2-1.3); Blood Urea Nitrogen 23 mg/dL (7-17); CRP 5.6 mg/dL (<1.0); Calcium 9.0 mg/dL (8.4-10.2); Carbon Dioxide 27 mmol/L (22-30); Chloride 103 mmol/L (98-107); Estimated Glomerular Filt Rate 56; Glucose 106 mg/dL (65-110); Osmolality Calculated 299 mOsm/kg (285-295); Potassium 3.4 mmol/L (3.4-5.0); Sodium 143 mmol/L (137-145); Total Protein 8.2 g/dL (6.3-8.2)
[2025-10-24 17:15] LABS: Thyroid Stimulating Hormone Reflex 2.260 uIU/mL (0.465-4.68)
--- OUTSIDE RECORDS SUMMARY | 2025-10-24 18:16 | XMS_ITS | Clinical Summary ---
Author Organization [facility] Address [address] [place] [address] Care Team Providers Care Grass Farmer Name Role Phone Kavon Rapp MD Primary Care Provider [phone] Source Comments [facility] [employer],non-owned Affiliates and Associated Physician Practices is amultiple site organization consisting of ambulatory clinics and hospital sitesin [place], [place], [place] and [place]. This disclosure is being madepursuant to the Care Everywhere program and may not contain all information available regarding this patient. Last updated 18.[facility] [employer] Social History Tobacco Use Types Packs/Day Years Used Date Smoking Tobacco: Every Day Cigarettes 1 34.8 Started: 12/23/1990 Alcohol Use Standard Drinks/Week Comments Not Asked 0 (1 standard drink = 0.6 oz pur e alcohol) Comments Unknown Sex and Gender Information Value Date Recorded Sex Assigned at Not on file Legal Sex Female 6:03 PM BILLET EXAMINER Gender Identity Not on file Sexual Orientation Not on file Last Filed Vital Signs Vital Sign Reading Time Taken Comments Blood Pressure - - Pulse - - Temperature - - Respiratory Rate - - Oxygen Saturation - - Inhaled Oxygen Concentration - - Weight 83.9 kg (185 lb) 12/23/2015 8:23 AM BILLET EXAMINER Height 157.5 cm (5' 2) 12/23/2015 8:23 AM BILLET EXAMINER Body Mass Index 33.84 12/23/2015 8:23 AM BILLET EXAMINER Plan of Treatment Health Maintenance Due Date Last Done Comments COLOGUARD (AGES 45-75) - COL ON CA SCREENING 1975 COLON MONITORING 1975 COLONOSCOPY - COLON CA SCREENING 1975 CT COLONOGRAPHY - COLON CA SCREENING 1975 Colorectal Cancer Screening 1975 FIT - COLON CA SCREENING 1975 FLEX SIG - COLON CA SCREENING 1975 LIPID TESTING 1975 MAMMOGRAM 1975 HIV SCREENING 1990 HEPATITIS C SCREENING 12/23/1993 DTAP/TDAP/TD VACCINES (1 - Tdap) 1994 HEPATITIS B VACCINE (1 of 3 - 19+ 3-dose series) 1994 DEPRESSION SCREENING 11/08/2024 COVID-19 VACCINE (1 - 2024-2 6 season) 2025 INFLUENZA VACCINE (#1) 2025 ZOSTER VACCINE (1 of 2) 2025 HIB VACCINE Aged Out No longer eligi ble based on patient's age to complete this topic HPV VACCINE Aged Out No longer eligi ble based on patient's age to complete this topic MENINGOCOCCAL (Group B) VACC INE SHARED DECISION-MAKING Aged Out No longer eligibl e based on patient's age to complete this topic MENINGOCOCCAL GROUPS A/C/Y/W VACCINE Aged Out No longer eligible b ased on patient's age to complete this topic Care Teams Grass Farmer Relationship Specialty Start Date End Date Kavon Rapp MD [address] [place], [place] [id number] PCP - General 12/23/15
--- OUTSIDE RECORDS SUMMARY | 2025-10-24 18:16 | XMS_ITS | Clinical Summary ---
Author Organization [facility] Address [address] [place] [address] Care Team Providers Care Production Line Solderer Name Role Phone Unavailable Primary Care Provider [...] 75.8 kg (167 lb) 11/26/2014 4:38 PM INVENTORY AUDIT CLERK Height 157.5 cm (5' 2) 11/26/2014 4:38 PM INVENTORY AUDIT CLERK Body Mass Index 30.54 11/26/2014 4:38 PM INVENTORY AUDIT CLERK Plan of Treatment Health Maintenance Due Date [...] HPV 2005 Mammogram Screening 2015 COVID-19 Vaccine (2024-2 6 season) 2025 Influenza Adult (#1) 2025 Hepatitis A Vaccines Aged Out No long er eligible based on patient's age to complete this topic Meningococcal B Vaccine Aged Out No l onger eligible based on patient's age to complete this topic Meningococcal Vaccine Aged Out No walker edda eligible based on patient's age to complete this topic Pneumococcal Vaccine: Pediat rics (0 to 5 Years) and At-Risk Patients (6 to 49 Years) Aged Out No longer eligible b ased on patient's age to complete this topic RSV Immunizations Under 20 Months Aged Out No longer eligible based on patient's age to complete this topic
--- OUTSIDE RECORDS SUMMARY | 2025-10-24 18:16 | XMS_ITS | Encounter Summary ---
Author Organization [facility] Address [address] [place] [address] Care Team Providers Care Ski Maker Name Role Phone Unavailable Primary Care Provider Unavailabl e Encounter Details Date Type Department Care Team (Latest Contact Info) Description 09/13/2018 Abstract [facility] Medical Group , Generic Conversion, Social History Tobacco Use Types Packs/Day Years [...]
== END 2025-10-24 16:10 | disposition home or self-care (01) ==
PROVIDERS: PCP Nurse Practitioner Family; Visit Provider Nurse Practitioner Family
DX: L08.9 Local infection of the skin and subcutaneous tissue, unspecified (principal); I10 Essential (primary) hypertension
CPT/HCPCS: 36415; 80053; 83605; 84443; 85025; 85055; 86140; 87040

== ENCOUNTER 2025-10-26 14:30 | Outpatient (NON) | payer MEDICARE, SELFPAY ==
--- OUTSIDE RECORDS SUMMARY | 2025-10-26 14:37 | XMS_ITS | Clinical Summary ---
Author Organization [facility] Address [address] [facility] [place] [address] Care Team Providers Care Titrator Name Role Phone Kavon Rapp MD Primary Care Provider [phone] Source Comments [facility] [employer],non-owned Affiliates and Associated Physician Practices is amultiple site organization consisting of ambulatory clinics and hospital sitesin [place], [place], [place] and [place]. This disclosure is being madepursuant to the Care Everywhere program and may not contain all information available regarding this patient. Last updated 18.[facility] [employer] Social History Tobacco Use Types Packs/Day Years Used Date Smoking Tobacco: Every Day Cigarettes 1 34.8 Started: 12/23/1990 Alcohol Use Standard Drinks/Week Comments Not Asked 0 (1 standard drink = 0.6 oz pur e alcohol) Comments Unknown Sex and Gender Information Value Date Recorded Sex Assigned at Not on file Legal Sex Female 6:03 PM PRINCIPAL MECHANICAL ENGINEER Gender Identity Not on file Sexual Orientation Not on file Last Filed Vital Signs Vital Sign Reading Time Taken Comments Blood Pressure - - Pulse - - Temperature - - Respiratory Rate - - Oxygen Saturation - - Inhaled Oxygen Concentration - - Weight 83.9 kg (185 lb) 12/23/2015 8:23 AM PRINCIPAL MECHANICAL ENGINEER Height 157.5 cm (5' 2) 12/23/2015 8:23 AM PRINCIPAL MECHANICAL ENGINEER Body Mass Index 33.84 12/23/2015 8:23 AM PRINCIPAL MECHANICAL ENGINEER Plan of Treatment Health Maintenance Due Date [...] age to complete this topic Care Teams Titrator Relationship Specialty Start Date End Date Kavon Rapp MD [address] [place], [place] [id number] PCP - General 12/23/15
--- OUTSIDE RECORDS SUMMARY | 2025-10-26 14:37 | XMS_ITS | Encounter Summary ---
Author Organization [facility] Address [address] [place] [address] Care Team Providers Care Insole Tacker Name Role Phone Unavailable Primary Care Provider Unavailabl e Encounter Details Date Type Department Care Team (Latest Contact Info) Description 09/13/2018 Abstract [facility] Medical Group , Generic Conversion, Social History [...]
--- OUTSIDE RECORDS SUMMARY | 2025-10-26 14:37 | XMS_ITS | Clinical Summary ---
Author Organization [facility] Address [address] [place] [address] Care Team Providers Care Associate Director Data & Analytics Name Role Phone Unavailable Primary Care Provider [...] 75.8 kg (167 lb) 11/26/2014 4:38 PM ASSISTANT PROFESSOR OF PHILOSOPHY Height 157.5 cm (5' 2) 11/26/2014 4:38 PM ASSISTANT PROFESSOR OF PHILOSOPHY Body Mass Index 30.54 11/26/2014 4:38 PM ASSISTANT PROFESSOR OF PHILOSOPHY Plan of Treatment Health Maintenance Due Date [...]
[2025-10-26 14:56] LABS: Add Urine Microscopic? YES; Appearance Urine Clear (Clear); Glucose Urine UA Negative (Negative); Leukocyte Esterase Ur Negative LEU/UL (Negative); Nitrate Urine Negative (Negative); Specific Grav Ur >= 1.030 (1.010-1.020)
== END 2025-10-26 14:31 | disposition home or self-care (01) ==
PROVIDERS: Visit Provider Nurse Practitioner Family
DX: R32 Unspecified urinary incontinence (principal); L08.9 Local infection of the skin and subcutaneous tissue, unspecified
CPT/HCPCS: 81001; 87070; 87075; 87186; 87205